=== PATIENT | male | born 1940 | race Caucasian/White ===

== ENCOUNTER → 2019-02-26 | Outpatient (CLI) | payer MEDICARE, OTHER ==
[~2019-02-26] MED LIST: AMLO10 PO; ASPI325EC; ATEN100; ATEN100 PO; CLOP75; GEMF600; GLIP10ER; HYDCHL25 PO; IBUP800; METF500 PO; METO100ER PO; NITR.4SL SL; QUIN5; ROSU10TA; RXOXYACE PO; TAMS.4ER; TRAM50
== END | disposition home or self-care (01) ==
LOC: LAB 19:28 → LAB SHORT 19:28
DX: R32 Unspecified urinary incontinence (principal)
CPT/HCPCS: 87086

== ENCOUNTER 2020-05-13 21:46 | Inpatient (IN) | payer MEDICARE, OTHER ==
[~2020-05-13] VITALS: Ht 162.6 cm; Wt 70.4 kg
[~2020-05-13 21:46] MED LIST changes: -TAMS.4ER; +TAMS.4ER PO
[2020-05-13] MEDS ORDERED: ASPI81CH PO (22:11)
[2020-05-13 22:14] LABS: Source, Urine Catheter
[2020-05-13 22:18] LABS: BASOPHILS ABSOLUTE AUTO 0.03 K/mm3 (0.00-0.23); BASOPHILS PERCENT AUTO 0 % (0-2); EOSINOPHILS ABSOLUTE AUTO 0.01 K/mm3 (0.00-0.68); EOSINOPHILS PERCENT AUTO 0 % (0-6); Hematocrit 47.2 % (37.0-53.0); Hemoglobin 15.7 g/dL (13.5-17.5); IMMATURE GRAN PERCENT AUTO 1 % (0-1); LYMPHOCYTES PERCENT AUTO 3 % (21-46); MONOCYTES ABSOLUTE AUTO 0.67 K/mm3 (0.16-1.47); MONOCYTES PERCENT AUTO 4 % (4-13); Mean Corpuscular HGB 30.3 pg (26.0-34.0); Mean Corpuscular HGB Conc 33.3 g/dL (31.5-36.5); Mean Corpuscular Volume 91 fL (80-100); Mean Platelet Volume 11.9 fL (9.1-12.4); NEUTROPHILS ABSOLUTE AUTO 14.16 K/mm3 (1.96-9.15); NEUTROPHILS PERCENT AUTO 92 % (41-73); Platelet Count 119 K/mm3 (150-400); RDW Coefficient Variation 12.6 % (11.7-14.2); RDW Standard Deviation 42.3 fL (35.1-46.3); Red Blood Cell Count 5.19 M/mm3 (4.30-5.90); White Blood Cell Count 15.37 K/mm3 (4.00-11.30)
[2020-05-13 22:19] LABS: Appearance, Urine Hazy (Clear); Bilirubin, Urine Neg (Neg); Blood, Urine 5+ (Neg); Color, Urine Amber (P-Yellow); Glucose Qualitative, Urine 2+ (Neg); Ketones, Urine 3+ (Neg); Leukocyte Esterase, Urine 2+ (Neg); Nitrite, Urine Neg (Neg); Protein, Urine 4+ (Neg); Specific Gravity, Urine 1.015 (1.003-1.022); Urobilinogen, Urine NORM (Normal)
[2020-05-13 22:27] LABS: Bacteria Few /hpf; Red Blood Cells, Urine 50-100 /hpf (0-2); Squamous Epithelial Cells Rare /hpf (Few); White Blood Cells, Urine 25-50 /hpf (0-5)
[2020-05-13 23:38] LABS: Alanine Aminotransfer (ALT/SGP 67 U/L (12-78); Albumin, Blood 2.8 g/dL (3.4-5.0); Albumin/Globulin Ratio 0.6 (0.8-1.8); Alk Phos 84 U/L (50-136); Anion Gap 10 mmol/L (6-16); Aspartate Aminotrans (AST/SGOT 94 U/L (12-37); Bilirubin, Total 1.3 mg/dL (0.1-1.0); Blood Urea Nitrogen 17 mg/dL (8-24); Bun/Creatinine Ratio 15.2 (12.0-20.0); CO2, Blood 25 mmol/L (21-32); Calcium, Blood 9.2 mg/dL (8.5-10.1); Chloride, Blood 103 mmol/L (98-108); Creatinine, Blood 1.12 mg/dL (0.60-1.20); Globulin, Blood 4.5 g/dL (2.2-4.0); Glomerular Filtration Rate >60 (60-); Glucose, Blood 215 mg/dL (70-99); Potassium, Blood 3.1 mmol/L (3.5-5.5); Sodium, Blood 138 mmol/L (136-145); Total Protein, Blood 7.3 g/dL (6.4-8.2)
[2020-05-14 01:30] LABS: Influenza A, PCR Negative (NEGATIVE); Influenza B, PCR Negative (NEGATIVE); Resp Syncytial Virus, PCR Negative (NEGATIVE); SARS-Cov-2 (COVID-19) PCR, MMC Negative (NEGATIVE)
[2020-05-14] MEDS ORDERED: Prinivil10 MG (01:40)
[2020-05-14] MEDS ORDERED: FINA5 PO (01:41)
[2020-05-14] MEDS ORDERED: VITAMIN D5000 UNIT PO (01:42)
[2020-05-14] MEDS ORDERED: BASAGLAR K100 UNIT/1 (01:44)
[2020-05-14 03:47] LABS: Hematocrit 45.9 % (37.0-53.0); Hemoglobin 14.9 g/dL (13.5-17.5); Mean Corpuscular HGB 30.3 pg (26.0-34.0); Mean Corpuscular HGB Conc 32.5 g/dL (31.5-36.5); Mean Corpuscular Volume 93 fL (80-100); Mean Platelet Volume 11.6 fL (9.1-12.4); Platelet Count 116 K/mm3 (150-400); RDW Coefficient Variation 12.8 % (11.7-14.2); RDW Standard Deviation 44.2 fL (35.1-46.3); Red Blood Cell Count 4.92 M/mm3 (4.30-5.90)
[2020-05-14 04:01] LABS: Anion Gap 9 mmol/L (6-16); Blood Urea Nitrogen 19 mg/dL (8-24); Bun/Creatinine Ratio 16.7 (12.0-20.0); CO2, Blood 24 mmol/L (21-32); Calcium, Blood 9.5 mg/dL (8.5-10.1); Chloride, Blood 106 mmol/L (98-108); Creatinine, Blood 1.14 mg/dL (0.60-1.20); Glomerular Filtration Rate >60 (60-); Glucose, Blood 183 mg/dL (70-99); Potassium, Blood 3.4 mmol/L (3.5-5.5); Sodium, Blood 139 mmol/L (136-145)
--- NOTE | 2020-05-14 05:45 | NUR ---
R FOREARM IV INSERTED PRIOR TO ARRIVAL TO UNIT. NO DOCUMENTATION.
--- NOTE | 2020-05-14 05:55 | NUR ---
SHIFT SUMMARY PT ARRIVED DURING SHIFT FROM ED. PT ALERT AND ORIENTED, SLOW TO RESPOND. HR TACHYCARDIC AT TIMES. BP HYPERTENSIVE, STABLE. OXYGEN SATURATION MAINTAINED ABOVE 92% ON RA. PT ABLE TO ASSIST IN Q 2 TURNS NEEDED. HEPARIN GTT RUNNING, VERIFIED WITH JESSICA INIGUEZ RN. PT REPORTS NO CP OR PRESSURE. PHYSICIAN NOTIFIED OF TRENDING UP TROPONIN LEVELS. WILL CONTINUE TO MONITOR UNTIL REPORT GIVEN TO DAYSHIFT RN.
--- NOTE | 2020-05-14 17:35 | NUR ---
SUMMARY NO ACUTE CHANGES T/O SHIFT. PT INCONTINENT AT TIMES. VOIDING SMALL AMOUNTS URINE, COMPRESSOR MECHANIC BUS THIS EVENING THAN THIS AM. TROPININ IMPROVING, DOWN TO 1.6. POWER GLIDE PLACED TO RUE. SPOUSE AT BEDSIDE AT THIS TIME. PT EATING DINNER. TURNED T/O SHIFT. CALL LIGHT IN REACH.
--- NOTE | 2020-05-14 19:00 | NUR ---
echocardiogram complete
[2020-05-15 04:51] LABS: BASOPHILS ABSOLUTE AUTO 0.02 K/mm3 (0.00-0.23); BASOPHILS PERCENT AUTO 0 % (0-2); EOSINOPHILS ABSOLUTE AUTO 0.08 K/mm3 (0.00-0.68); EOSINOPHILS PERCENT AUTO 1 % (0-6); IMMATURE GRAN ABSOLUTE AUTO 0.02 K/mm3 (0.00-0.10); IMMATURE GRAN PERCENT AUTO 0 % (0-1); LYMPHOCYTES ABSOLUTE AUTO 0.91 K/mm3 (0.84-5.20); LYMPHOCYTES PERCENT AUTO 16 % (21-46); MONOCYTES ABSOLUTE AUTO 0.32 K/mm3 (0.16-1.47); MONOCYTES PERCENT AUTO 6 % (4-13); Mean Corpuscular HGB 30.6 pg (26.0-34.0); Mean Corpuscular HGB Conc 32.4 g/dL (31.5-36.5); Mean Corpuscular Volume 94 fL (80-100); Mean Platelet Volume 11.6 fL (9.1-12.4); NEUTROPHILS ABSOLUTE AUTO 4.28 K/mm3 (1.96-9.15); NEUTROPHILS PERCENT AUTO 76 % (41-73); Platelet Count 100 K/mm3 (150-400); RDW Coefficient Variation 12.8 % (11.7-14.2); RDW Standard Deviation 44.5 fL (35.1-46.3); White Blood Cell Count 5.63 K/mm3 (4.00-11.30)
--- NOTE | 2020-05-15 05:30 | NUR ---
SHIFT SUMMARY PT SLEPT T/O SHIFT. PT ALERT AND ORIENTED X 4. CONFUSED AT TIMES. HR STABLE. BP HYPERTENSIVE. MEDICATIONS GIVEN PER EMAR. PT REPORTS NO CP OR PRESSURE. HEPARIN GTT RUNNING AT 13 U/KG/HR. NO CHANGES MADE DURING SHIFT. PT INCONTINENT OF URINE AT TIMES. DEPENDS IN PLACE. PT ABLE TO TURN SELF IN BED. MEPLEX ON COCCYX. OXYGEN SATURATION MAINTAINED ABOVE 92% ON RA. WILL CONTINUE TO MONITOR UNTIL REPORT GIVEN TO DAYSSAHIL ALAS.
--- NOTE | 2020-05-15 18:39 | NUR ---
SHIFT SUMMARY PT RESTING IN BED NO ACUTE CHANGES IN STATUS T/O SHIFT. DENIED ANY SOB AND CP T/O SHIFT. TROP TRENDING DOWNWARD. HEPARIN GTT DC'D AND SC LOVENOX STARTED. PT TO START WORKING WITH PT/OT TOMORROW. SATS >92^ ON RA. BP STABLE. PT ID HAVE LARGE BM DURING SHIFT. INCONTINENT OF URINE. CALL LGHT IN REACH.
[2020-05-16 01:47] LABS: BASOPHILS ABSOLUTE AUTO 0.02 K/mm3 (0.00-0.23); BASOPHILS PERCENT AUTO 1 % (0-2); EOSINOPHILS PERCENT AUTO 3 % (0-6); Hematocrit 33.1 % (37.0-53.0); Hemoglobin 10.5 g/dL (13.5-17.5); IMMATURE GRAN ABSOLUTE AUTO 0.02 K/mm3 (0.00-0.10); IMMATURE GRAN PERCENT AUTO 1 % (0-1); LYMPHOCYTES ABSOLUTE AUTO 0.99 K/mm3 (0.84-5.20); LYMPHOCYTES PERCENT AUTO 26 % (21-46); MONOCYTES ABSOLUTE AUTO 0.35 K/mm3 (0.16-1.47); MONOCYTES PERCENT AUTO 9 % (4-13); Mean Corpuscular HGB 30.3 pg (26.0-34.0); Mean Corpuscular HGB Conc 31.7 g/dL (31.5-36.5); Mean Corpuscular Volume 95 fL (80-100); Mean Platelet Volume 11.5 fL (9.1-12.4); NEUTROPHILS ABSOLUTE AUTO 2.38 K/mm3 (1.96-9.15); NEUTROPHILS PERCENT AUTO 62 % (41-73); Platelet Count 113 K/mm3 (150-400); RDW Coefficient Variation 12.9 % (11.7-14.2); RDW Standard Deviation 45.1 fL (35.1-46.3); Red Blood Cell Count 3.47 M/mm3 (4.30-5.90); White Blood Cell Count 3.86 K/mm3 (4.00-11.30)
[2020-05-16 02:01] LABS: Albumin/Globulin Ratio 0.6 (0.8-1.8); Bilirubin, Total 0.3 mg/dL (0.1-1.0); Bun/Creatinine Ratio 27.1 (12.0-20.0); Calcium, Blood 8.6 mg/dL (8.5-10.1); Creatinine, Blood 1.29 mg/dL (0.60-1.20); Globulin, Blood 3.2 g/dL (2.2-4.0); Potassium, Blood 3.9 mmol/L (3.5-5.5); Total Protein, Blood 5.2 g/dL (6.4-8.2)
--- NOTE | 2020-05-16 06:18 | NUR ---
SHIFT SUMMARY PT SLEPT T/O SHIFT. PT HYPERTENSIVE, PRN PRESCRIBED MEDICATIONS GIVEN. D/T CONTINUING HTN, PHYSICIAN NOTIFIED. MEDICATIONS PRESCRIBED PER EMAR AND GIVEN PRESCRIBED. PT REPORTS NO CP OR PRESSURE. HR BRADYCARDIC AT TIMES. OXYGEN SATURATION MAINTAINED ABOVE 92% ON RA. PT ABLE TO TURN SELF IN BED NEEDED. PT ALERT AND ORIENTED X 4. MEPLEX ON COCCYX D/T REDNESS. PT INCONTINENT AT TIMES BUT ABLE TO USE URINAL. WILL CONTINUE TO MONITOR UNTIL REPORT GIVEN TO DAYSHIFT RN.
--- NOTE | 2020-05-16 10:55 | NUR ---
PT AWAKE AND ALERT AND PLEASANT. MILD FORGETFULNESS NOTED. PT DENIES AM PAIN OR DISTRESS AND CLAIMS TO BE WALKING AROUND AT HOME WITH WALKER MOST OF THE TIME. PT TAKING PO WELL AND FEEDING SELF. DENIES NEED TO VOID AT THIS TIME WITH ATTENDS IN PLACE FOR POTENTIAL INCONTANCE.
[2020-05-16] MEDS ORDERED: AMLO10 PO (13:17)
[2020-05-16] MEDS ORDERED: CEFU500T30 PO (13:18)
[2020-05-16] MEDS ORDERED: HUMALOG100 UNIT/1 SC (13:19)
[2020-05-16] MEDS ORDERED: PROBIOTIC PO (13:21)
--- NOTE | 2020-05-16 17:39 | NUR ---
DISCHARGE NOTE. PT INSRUCTIONS GIVEN TO PT AND . IV SITES REMOVED INTACT. W/C PT TO [facility].
== END 2020-05-16 15:56 | disposition home health service (06) | DRG 871 ==
LOC: ER 21:46 → PCU 05-14 01:16
PROVIDERS: Family Medicine; Student in an Organized Health Care Education/Training Program; ADMIT Internal Medicine
DX: A40.1 Sepsis due to streptococcus, group B (principal); G92 Toxic encephalopathy; N12 Tubulo-interstitial nephritis, not specified as acute or chronic; Z79.84 Long term (current) use of oral hypoglycemic drugs; Z79.82 Long term (current) use of aspirin; I25.10 Atherosclerotic heart disease of native coronary artery without angina pectoris; E11.9 Type 2 diabetes mellitus without complications; I10 Essential (primary) hypertension; Z95.5 Presence of coronary angioplasty implant and graft; Z95.2 Presence of prosthetic heart valve; E87.6 Hypokalemia; Z20.828 Contact with and (suspected) exposure to other viral communicable diseases; R32 Unspecified urinary incontinence
CPT/HCPCS: 0241U; 36415; 51701; 71045; 76770; 80048; 80053; 81001; 82947; 83605; 84484; 85025; 85027; 85049; 85730; 87086; 87147; 93005; 93010; 93306; 96361; 96365; 96372-59; 97110; 97116; 97162; 99285-25; A9270; A9270-GY; J0696; J1644; J1650; J3480; J7030; J7050; J7120

== ENCOUNTER 2020-09-09 10:53 | Emergency (ER) | payer MEDICARE, OTHER ==
[~2020-09-09] VITALS: Ht 165.1 cm; Wt 74.8 kg
[~2020-09-09 10:53] MED LIST changes: +ASPI81CH PO; +BASAGLAR K100 UNIT/1; +CEFU500T30 PO; +FINA5 PO; +HUMALOG100 UNIT/1 SC; +PROBIOTIC PO; +Prinivil10 MG; +VITAMIN D5000 UNIT PO
[2020-09-09 11:52] LABS: BASOPHILS ABSOLUTE AUTO 0.03 K/mm3 (0.00-0.23); BASOPHILS PERCENT AUTO 0 % (0-2); EOSINOPHILS ABSOLUTE AUTO 0.19 K/mm3 (0.00-0.68); EOSINOPHILS PERCENT AUTO 3 % (0-6); Hematocrit 37.7 % (37.0-53.0); Hemoglobin 12.1 g/dL (13.5-17.5); IMMATURE GRAN ABSOLUTE AUTO 0.03 K/mm3 (0.00-0.10); IMMATURE GRAN PERCENT AUTO 0 % (0-1); LYMPHOCYTES ABSOLUTE AUTO 1.47 K/mm3 (0.84-5.20); LYMPHOCYTES PERCENT AUTO 21 % (21-46); MONOCYTES ABSOLUTE AUTO 0.28 K/mm3 (0.16-1.47); MONOCYTES PERCENT AUTO 4 % (4-13); Mean Corpuscular HGB Conc 32.1 g/dL (31.5-36.5); Mean Corpuscular Volume 93 fL (80-100); Mean Platelet Volume 11.7 fL (9.1-12.4); NEUTROPHILS ABSOLUTE AUTO 5.11 K/mm3 (1.96-9.15); NEUTROPHILS PERCENT AUTO 72 % (41-73); Platelet Count 133 K/mm3 (150-400); RDW Coefficient Variation 13.4 % (11.7-14.2); RDW Standard Deviation 45.8 fL (35.1-46.3); Red Blood Cell Count 4.04 M/mm3 (4.30-5.90); White Blood Cell Count 7.11 K/mm3 (4.00-11.30)
[2020-09-09 12:13] LABS: Albumin, Blood 3.3 g/dL (3.4-5.0); Albumin/Globulin Ratio 0.9 (0.8-1.8); Bun/Creatinine Ratio 22.2 (12.0-20.0); Creatinine, Blood 1.35 mg/dL (0.60-1.20); Globulin, Blood 3.7 g/dL (2.2-4.0); Potassium, Blood 5.3 mmol/L (3.5-5.5)
[2020-09-09 12:53] LABS: Source, Urine Clean Catch
[2020-09-09 13:00] LABS: Appearance, Urine Clear (Clear); Bilirubin, Urine Neg (Neg); Blood, Urine 4+ (Neg); Color, Urine Yellow (P-Yellow); Glucose Qualitative, Urine Neg (Neg); Ketones, Urine Neg (Neg); Leukocyte Esterase, Urine 1+ (Neg); Nitrite, Urine Neg (Neg); Protein, Urine 3+ (Neg); Specific Gravity, Urine 1.015 (1.003-1.022); Urobilinogen, Urine NORM (Normal)
[2020-09-09 13:28] LABS: Red Blood Cells, Urine 25-50 /hpf (0-2); Squamous Epithelial Cells Rare /hpf (Few)
[2020-09-09 13:29] LABS: Bacteria Few /hpf; Hyaline Casts 0-2 /lpf (0-2)
[2020-09-09] MEDS ORDERED: OXYC5 PO (14:09)
== END 2020-09-09 14:20 | disposition home or self-care (01) ==
LOC: ER 10:53
PROVIDERS: Emergency Medicine
DX: N13.2 Hydronephrosis with renal and ureteral calculous obstruction (principal); E11.9 Type 2 diabetes mellitus without complications; I10 Essential (primary) hypertension; Z88.8 Allergy status to other drugs, medicaments and biological substances; Z79.899 Other long term (current) drug therapy; Z79.82 Long term (current) use of aspirin; Z79.4 Long term (current) use of insulin
CPT/HCPCS: 36415; 74176; 80053; 81001; 85025; 87086; 99284-25

== ENCOUNTER → 2020-11-04 | Outpatient (CLI) | payer MEDICARE, OTHER ==
[~2020-11-04] MED LIST changes: +OXYC5 PO
[2020-11-04 19:05] LABS: Appearance, Urine Clear (Clear); Bilirubin, Urine Neg (Neg); Blood, Urine 5+ (Neg); Color, Urine Yellow (P-Yellow); Glucose Qualitative, Urine Neg (Neg); Ketones, Urine Neg (Neg); Leukocyte Esterase, Urine Neg (Neg); Nitrite, Urine Neg (Neg); Protein, Urine 3+ (Neg); Specific Gravity, Urine 1.015 (1.003-1.022); Urobilinogen, Urine NORM (Normal)
[2020-11-04 19:16] LABS: Bacteria Mod /hpf; Red Blood Cells, Urine TNTC /hpf (0-2); Squamous Epithelial Cells Few /hpf (Few); White Blood Cells, Urine 0-2 /hpf (0-5)
== END | disposition home or self-care (01) ==
LOC: LAB 17:00 → LAB SHORT 17:00
PROVIDERS: Family Medicine
DX: R31.9 Hematuria, unspecified (principal)
CPT/HCPCS: 81001; 87086

== ENCOUNTER → 2021-02-22 | Outpatient (CLI) | payer MEDICARE, OTHER ==
[2021-02-22 15:00] LABS: Appearance, Urine Hazy (Clear); Bilirubin, Urine Neg (Neg); Blood, Urine 5+ (Neg); Color, Urine Amber (P-Yellow); Glucose Qualitative, Urine 1+ (Neg); Ketones, Urine 1+ (Neg); Leukocyte Esterase, Urine 1+ (Neg); Nitrite, Urine Pos (Neg); Protein, Urine 4+ (Neg); Urobilinogen, Urine NORM (Normal)
[2021-02-22 15:14] LABS: Bacteria Few /hpf; Red Blood Cells, Urine 50-100 /hpf (0-2); Squamous Epithelial Cells Rare /hpf (Few)
== END | disposition home or self-care (01) ==
LOC: LAB SHORT 12:00
PROVIDERS: Family Medicine
DX: R31.9 Hematuria, unspecified (principal)
CPT/HCPCS: 81001; 87086

== ENCOUNTER 2021-05-23 23:02 | Inpatient (IN) | payer MEDICARE, OTHER ==
[~2021-05-23] VITALS: Ht 165.1 cm; Wt 66.5 kg
[~2021-05-23 23:02] MED LIST changes: -ROSU10TA; +ROSU10TA PO
[2021-05-23] MEDS ORDERED: IRBE75 (23:27)
[2021-05-23] MEDS ORDERED: Amlodipine Bes2.5 MG (23:27)
[2021-05-23] MEDS ORDERED: FINA5 PO (23:28)
[2021-05-23] MEDS ORDERED: TRAM50 (23:28)
[2021-05-23] MEDS ORDERED: CELE100 PO (23:28)
[2021-05-23 23:52] LABS: Hemoglobin 11.7 g/dL (13.5-17.5); Mean Corpuscular HGB 31.3 pg (26.0-34.0); Mean Corpuscular HGB Conc 32.5 g/dL (31.5-36.5); Mean Corpuscular Volume 96 fL (80-100); Mean Platelet Volume 12.6 fL (9.1-12.4); Platelet Count 138 K/mm3 (150-400); RDW Coefficient Variation 13.9 % (11.7-14.2); RDW Standard Deviation 49.2 fL (35.1-46.3); Red Blood Cell Count 3.74 M/mm3 (4.30-5.90); White Blood Cell Count 5.08 K/mm3 (4.00-11.30)
[2021-05-24 00:10] LABS: Albumin, Blood 2.8 g/dL (3.4-5.0); Albumin/Globulin Ratio 0.8 (0.8-1.8); Bun/Creatinine Ratio 13.7 (12.0-20.0); Calcium, Blood 8.6 mg/dL (8.5-10.1); Creatinine, Blood 3.65 mg/dL (0.60-1.20); Globulin, Blood 3.3 g/dL (2.2-4.0); Potassium, Blood 4.2 mmol/L (3.5-5.5); Total Protein, Blood 6.1 g/dL (6.4-8.2)
[2021-05-24 00:22] LABS: BAND PERCENT MAN 9 % (0-8); BASOPHILS PERCENT MAN 0 % (0-2); EOSINOPHILS PERCENT MAN 4 % (0-6); LYMPHOCYTES ABSOLUTE MAN 0.81 K/mm3 (0.84-5.20); LYMPHOCYTES PERCENT MAN 16 % (21-46); MONOCYTES ABSOLUTE MAN 0.45 K/mm3 (0.16-1.47); MONOCYTES PERCENT MAN 9 % (4-13); SEG NEUTROPHILS PERCENT MAN 62 % (41-73); TOTAL CELLS COUNTED 100
[2021-05-24 05:56] LABS: Hematocrit 33.8 % (37.0-53.0); Hemoglobin 11.4 g/dL (13.5-17.5); Mean Corpuscular HGB 31.6 pg (26.0-34.0); Mean Corpuscular HGB Conc 33.7 g/dL (31.5-36.5); Mean Corpuscular Volume 94 fL (80-100); Mean Platelet Volume 12.4 fL (9.1-12.4); Platelet Count 119 K/mm3 (150-400); RDW Coefficient Variation 13.7 % (11.7-14.2); RDW Standard Deviation 46.5 fL (35.1-46.3); Red Blood Cell Count 3.61 M/mm3 (4.30-5.90); White Blood Cell Count 4.85 K/mm3 (4.00-11.30)
[2021-05-24 06:15] LABS: Albumin, Blood 2.6 g/dL (3.4-5.0); Albumin/Globulin Ratio 0.8 (0.8-1.8); Bilirubin, Total 0.9 mg/dL (0.1-1.0); Bun/Creatinine Ratio 14.6 (12.0-20.0); Calcium, Blood 8.2 mg/dL (8.5-10.1); Creatinine, Blood 3.55 mg/dL (0.60-1.20); Globulin, Blood 3.2 g/dL (2.2-4.0); Potassium, Blood 4.4 mmol/L (3.5-5.5); Total Protein, Blood 5.8 g/dL (6.4-8.2)
[2021-05-24 06:20] LABS: Influenza A, PCR NEGATIVE (NEGATIVE); Influenza B, PCR NEGATIVE (NEGATIVE); Resp Syncytial Virus, PCR NEGATIVE (NEGATIVE); SARS-Cov-2 (COVID-19) PCR, MMC NEGATIVE (NEGATIVE)
--- NOTE | 2021-05-24 06:33 | NUR ---
ALERT AND ORIENTED X4, PAIN IMPROED FROM ARRIVAL TO ER, NOT VOMITED, ABD FEELS MORE COMFORTABLE, LUNGS DIMISHED, ABD SOUND HYPO, SKIN INTACT. STATES TO USE A WALKER TO AMBULATE (WALKER IN ROOM). WILL COME TO VERIFY MEDS.
[2021-05-24 06:43] LABS: BAND PERCENT MAN 34 % (0-8); BASOPHILS PERCENT MAN 0 % (0-2); EOSINOPHILS ABSOLUTE MAN 0.09 K/mm3 (0.00-0.68); EOSINOPHILS PERCENT MAN 2 % (0-6); LYMPHOCYTES ABSOLUTE MAN 0.38 K/mm3 (0.84-5.20); LYMPHOCYTES PERCENT MAN 8 % (21-46); MONOCYTES ABSOLUTE MAN 0.19 K/mm3 (0.16-1.47); MONOCYTES PERCENT MAN 4 % (4-13); NEUTROPHILS ABSOLUTE MAN 4.17 K/mm3 (1.96-9.15); SEG NEUTROPHILS PERCENT MAN 52 % (41-73); TOTAL CELLS COUNTED 100
--- NOTE | 2021-05-24 08:32 | NUR ---
INTO SDS ADMISSION TO UNIT STARTED
--- NOTE | 2021-05-24 11:04 | NUR ---
Pt was alert and oriented x3, disoriented to time prior to surgery. Pt left for surgery close to 0800 and will transfer to PCU after surgery. Pt reported abdominal pain this AM with distention. LR was running at 100ml/hr prior to surgery. Will give report to PCU.
--- NOTE | 2021-05-24 11:23 | NUR ---
Report given to Liz in PCU.
--- NOTE | 2021-05-24 14:51 | NUR ---
PT SUMMARY: PT ARRIVED IN THE UNIT VIA HOSPITAL BED FROM RECOVERY POST COLECTOMY. PT ALERT AND ORIENTED X3 WAS STILL A LITTLE DROWSY FROM PROCEDURE BUT IS IN A LOT OF PAIN 8-10/10. VITALS HRR SINUS AT 80-90'S, BP SYSTOLIC ELEVATED AT 170-190'S, HYDRALAZINE 10MG IV GIVEN ONCE BP SYSTOLIC SUSTAINED AT 160-170'S, SATS ABOVE 95% ON 1L OF O2, AFEBRILE. HARNESS TIER PUMP ALSO STARTED ALSO GIVEN FENTANYL 25MCG OF BOLUS PAIN WAS DOWN TO 6/10, PT INSTRUCTED ABOUT THE USE OF HARNESS TIER PT AWARE OF 6MINS INTERVAL OF DOSE INFUSION, PT WAS ABLE TO DEMONSTRATE PUSHING THE BUTTON. ABOUT 75MCG ADMINISTERED FROM THE PUMP TOTAL INFUSED AT THIS TIME. SATYA DRESSING PRESENT ON ABDOMEN, DRESSING REMAINED INTACT. NGT TO INTERMITTENT SUCTION DRAINAGE BROWN IN COLOR WITH GASTRIC CONTENTS. NAVARRETE DRAINING VIA GRAVITY. LACTIC ACID WAS CALLED TO THE HOSPITALIST DR SMILEY ORDERED 1L BOLUS OF LR AND TO REPEAT LACTIC ACID AT 1500. BOLUS INFUSED LR NOW RUNNING AT 150MLS/HR. PT WAS REPOSITIONED OFTEN FOR COMFORT, INSTRUCTED TO COUGH AND DEEP BREATHE. DR JOHNSON ALSO STOPPED BY TO SEE PT VERIFIED EKG THAT PT WAS INTO MOBITZ TYPE 1. PT IN BED RESTING WITH CALL LIGHTS AND PAIN BUTTON IN REACH. WILL CONTINUE TO MONITOR
--- NOTE | 2021-05-24 18:39 | NUR ---
PT'S PAIN WELL MANAGED AT THIS TIME VIA WOOD BUFFER PUMP TOTAL OF 132 MCG ADMINISTERED. PT SLEEPING AND RESTING WELL, VITALS NOW STABLE BP SYSTOLIC 150'S, HRR SR 100'S, SATS ABOVE 95% ON 1L OF O2, AFEBRILE. PT ABLE TO TURN AND REPOSITION IN BED. ONYL HAD 120MLS OF URINE OUTPUT DR SMILEY AWARE TO RECHECK RENAL FUNCTION IN AM, 2700MLS IV FLUID INFUSED LAST LACTIC ACID WAS 11.6 LEADITE HEATER WAS CONSULTED TO CONTINUE LR AT 150MLS/HR. ABD DRESSING CDI. WAS AT THE BEDSIDE UNTIL 6PM. NO OTHER ISSUES REPORTED, CALL LIGHTS AND PAIN BUTTON WITHIN REACH, WILL REPORT TO ONCOMING SHIFT
[2021-05-25 03:24] LABS: Hematocrit 37.6 % (37.0-53.0); Hemoglobin 12.2 g/dL (13.5-17.5); Mean Corpuscular HGB 30.8 pg (26.0-34.0); Mean Corpuscular HGB Conc 32.4 g/dL (31.5-36.5); Mean Corpuscular Volume 95 fL (80-100); Mean Platelet Volume 12.2 fL (9.1-12.4); Platelet Count 102 K/mm3 (150-400); RDW Coefficient Variation 13.8 % (11.7-14.2); RDW Standard Deviation 48.3 fL (35.1-46.3); Red Blood Cell Count 3.96 M/mm3 (4.30-5.90)
[2021-05-25 03:48] LABS: BAND PERCENT MAN 60 % (0-8); BASOPHILS PERCENT MAN 0 % (0-2); EOSINOPHILS PERCENT MAN 0 % (0-6); LYMPHOCYTES ABSOLUTE MAN 0.13 K/mm3 (0.84-5.20); LYMPHOCYTES PERCENT MAN 3 % (21-46); METAMYELOCYTE ABSOLUTE MAN 0.13 K/mm3 (0.00-0.00); METAMYELOCYTE PERCENT MAN 3 % (0-0); MONOCYTES ABSOLUTE MAN 0.13 K/mm3 (0.16-1.47); MONOCYTES PERCENT MAN 3 % (4-13); MYELOCYTE ABSOLUTE MAN 0.09 K/mm3 (0.00-0.00); MYELOCYTE PERCENT MAN 2 % (0-0); SEG NEUTROPHILS PERCENT MAN 29 % (41-73); TOTAL CELLS COUNTED 100
[2021-05-25 05:13] LABS: Bun/Creatinine Ratio 16.1 (12.0-20.0); Calcium, Blood 7.2 mg/dL (8.5-10.1); Creatinine, Blood 3.29 mg/dL (0.60-1.20); Potassium, Blood 4.6 mmol/L (3.5-5.5)
--- NOTE | 2021-05-25 06:18 | NUR ---
SHIFT SUMMARY ASSUMED CARE OF PT AT 1900. PT IS A/OX4. HEART SOUNDS REGULAR, TELE SHOWS SINUS TACH W/ BBB. LUNG SOUNDS DIMINISHED, PT REMAINED ON 1L NC T/O THE NIGHT. PT STATED THAT HE FELT BETTER THAN WAS YESTERDAY. PT REMAIND PAINFREE DURING THE NIGHT. 119MCG OF FENTYAL INFUSED. PT HAS A PICA DRESSING ON HIS ABD, SMALL AMOUNT OF RED DRAINAGE, SAME SIZE HAS DURING DAYSHIFT. CALL LIGHT IN REACH, BED IN LOWEST POSITION.
--- NOTE | 2021-05-25 12:03 | NUR ---
TRANSFER UPDATE REPORT TO ALICIA ALAS ON SURGICAL FLOOR AT 1203.
--- NOTE | 2021-05-25 12:23 | NUR ---
TRANSFER UPDATE PT LEFT UNIT AT 1218 VIA HOSPITAL BED AND OCCOMPANIED BY TO WHISTLE PUNK'S. PT BELONGINGS WITH PT. ON RA DURING TRANSFER. INJECTION MOLDING OPERATOR PUMP TRANSFERED WITH PT.
--- NOTE | 2021-05-25 17:06 | NUR ---
PT. TO FLOOR, ROOM 227 AT 1230 TODAY. DENIES NAUSEA OR PAIN, NG CLAMPED. PT. WITH FIRM ABODMEN, BT HEARD. DRSG. ON ABD. INTACT, CLEAN AND DRY WITH OLD SPOT OF DRAINAGE. O2 ON AT 1l PER NC. AT THIS TIME PT. IS HAVING PORTABLE CXRAY DONE. URINE COLLECTED PER ORDER FOR UA. IS HERE TO VISIT. ORAL CARE DONE TODAY (TEETH BRUSHED AND MOUTH CARE), REPOSITIONED WITH PILLOWS.
[2021-05-25 17:29] LABS: Source, Urine Clean Catch
[2021-05-25 17:35] LABS: Bilirubin, Urine Neg (Neg); Blood, Urine 4+ (Neg); Color, Urine Yellow (P-Yellow); Glucose Qualitative, Urine Neg (Neg); Ketones, Urine 1+ (Neg); Leukocyte Esterase, Urine Neg (Neg); Nitrite, Urine Neg (Neg); Protein, Urine 3+ (Neg); Urobilinogen, Urine NORM (Normal)
[2021-05-25 17:48] LABS: Appearance, Urine Clear (Clear)
[2021-05-25 17:49] LABS: Bacteria Mod /hpf; Granular Casts 0-2 /lpf (0); Red Blood Cells, Urine 0-2 /hpf (0-2); Squamous Epithelial Cells Rare /hpf (Few); White Blood Cells, Urine 0-2 /hpf (0-5)
--- NOTE | 2021-05-25 20:50 | NUR ---
PT IN BED AND IS RESTING COMFORTABLY IN STABLE POSITION. AAO, STATED HIS PAIN IS CONTROLLED WITH VEHICLE INSURANCE AGENT DILAUDID. HE ASSISTED WITH CARE AND ADLS, ASSISTED WITH TOILETING AND BATHROOM NEEDS. HIS CALL LIGHT WAS PLACED NEAR HIM AND ENCOURAGED TO CALL FOR HELP WHEN ASSISTANCE IS NEEDED HE IS MONITORED.
[2021-05-26 04:29] LABS: Hematocrit 32.5 % (37.0-53.0); Hemoglobin 10.6 g/dL (13.5-17.5); Mean Corpuscular HGB 31.7 pg (26.0-34.0); Mean Corpuscular HGB Conc 32.6 g/dL (31.5-36.5); Mean Corpuscular Volume 97 fL (80-100); Mean Platelet Volume 12.1 fL (9.1-12.4); Platelet Count 68 K/mm3 (150-400); RDW Coefficient Variation 13.6 % (11.7-14.2); RDW Standard Deviation 49.1 fL (35.1-46.3); Red Blood Cell Count 3.34 M/mm3 (4.30-5.90); White Blood Cell Count 13.33 K/mm3 (4.00-11.30)
[2021-05-26 05:05] LABS: BAND PERCENT MAN 38 % (0-8); BASOPHILS PERCENT MAN 0 % (0-2); EOSINOPHILS PERCENT MAN 0 % (0-6); LYMPHOCYTES ABSOLUTE MAN 0.13 K/mm3 (0.84-5.20); LYMPHOCYTES PERCENT MAN 1 % (21-46); METAMYELOCYTE ABSOLUTE MAN 0.13 K/mm3 (0.00-0.00); METAMYELOCYTE PERCENT MAN 1 % (0-0); MONOCYTES ABSOLUTE MAN 0.13 K/mm3 (0.16-1.47); MONOCYTES PERCENT MAN 1 % (4-13); MYELOCYTE ABSOLUTE MAN 0.13 K/mm3 (0.00-0.00); MYELOCYTE PERCENT MAN 1 % (0-0); NEUTROPHILS ABSOLUTE MAN 12.79 K/mm3 (1.96-9.15); SEG NEUTROPHILS PERCENT MAN 58 % (41-73); TOTAL CELLS COUNTED 100
--- NOTE | 2021-05-26 05:27 | NUR ---
Pt in bed at this time where he remains much of the night and is resting comfortably in stable condition. AAO, denies pain and discomfort. Assisted with care and adls, medicated as ordered. Assisted with toileting and bathroom needs, assistaing with position change in efforts to enhance comfort. His call light was placed near him and was encouraged to call for help when assistance is needed as he is monitored.
--- NOTE | 2021-05-26 05:28 | NUR ---
Pt noted to have his clamped and unused NG tube fall out, he stated it was an accident.
[2021-05-26 05:48] LABS: Calcium, Blood 7.3 mg/dL (8.5-10.1); Creatinine, Blood 3.23 mg/dL (0.60-1.20); Potassium, Blood 4.3 mmol/L (3.5-5.5)
--- NOTE | 2021-05-26 05:58 | NUR ---
MIDLINE DRESSING IS CLEAN DRY AND PATENT. NO DISCOMFORT VOICED BT PT AT THE AFFECTED AREA.
--- NOTE | 2021-05-26 09:59 | NUR ---
OT AND PT ORDERED THIS A.M. AND PT. UP IN CHAIR AT THIS TIME. VERY WEAK, DIFFICULTY STANDING . MAX ASSIST OF 2 WITH WALKER AND GAITBELT. ECHOCARDIOGRAPHY RADIOLOGY TECHNOLOGIST TURNED OFF AT THIS TIME PT. HAS NO C/O PAIN, IS SLEEPY. VSS, SATS IN 80'S ON 2L , UP TO 3L FOR SATS ABOVE 90%. TOLERATING SITTING UP IN CHAIR AT THIS TIME, DOZING. NO S/S OF ANY DISCOMFORT. MLondon. IN TO SEE PT. THIS A.M.
--- NOTE | 2021-05-26 12:12 | NUR ---
DR. CHAMBERS NOTIFIED OF STOPPED BROWNFIELD PROGRAM COORDINATOR EARLIER VIA TEXT. AT THIS TIME BROWNFIELD PROGRAM COORDINATOR IS DC'D. PATIENT REMAINS UP IN CHAIR IN RECLINING POSITION. DOZING, DENIES PAIN. DENIES NAUSEA.
--- NOTE | 2021-05-26 12:22 | NUR ---
DR. CHAMBERS IN AT THIS TIME . TRAVEL RN OR DC'D. IVF CONTINUED. PATIENT CONTINUES TO DENY PAIN AND DENY NAUSEA. REMAINS UP IN CHAIR. O2 ON AT 3L FOR SAT 92%
--- NOTE | 2021-05-26 14:36 | NUR ---
PATIENT SUMMARY: PT. DROWSY TODAY, BECOMING MORE TALKATIVE DAY PROGRESSES. PAPER CAP MACHINE OPERATOR DC'D TODAY, OFF SINCE 0800 THIS A.M. . HAS DENIED PAIN OR NAUSEA. TYLENOL GIVEN RECENTLY FOR PAIN CONTROL, HOWEVER PT. WITHOUT COMPLAINT. SIPS OF WATER GIVEN PT. IS NOW CLEAR LIQUID. SWALLOWS WELL WITHOUT CHOKING, DENIES ABD. DISCOMFORT. CLINIMIX STARTED, UNASYN STARTED, LR DC'D. IN ROOM VISITING AT THIS TIME. ORAL CARE GIVEN EARLIER AND NAVARRETE CARE. DR. CHAMBERS DID SAY NAVARRETE CAN STAY IN FOR NOW. CALL LIGHT IN REACH, ENCOURAGED PT. TO USE FOR ANY CARES, NEEDS, CONCERNS, COMPLAINTS. ENCOURAGED TO DEEP BREATH T.O. SHIFT. PT AND OT IN TODAY AND DID GET PT. UP. MAX ASSIST TO GET BACK IN BED, 2 PERSON, PT. VERY VERY WEAK. GAIT BELT USED. DID TOLERATE CHAIR X 3 HOUR.
--- NOTE | 2021-05-26 15:21 | NUR ---
1435 ASSUMED CARE OF [ATIENT. PT LYING IN BED WITH EYES CLOSED AND CALL LIGHT IN REACH. PTS AT BEDSIDE AND INSTRUCTED IN USE OF CALL LIGHT
--- NOTE | 2021-05-26 18:07 | NUR ---
TPL SIPS OF CLEAR LIQUIDS WITHOUT NAUSEA. ASSISTED WITH DINNER REPORTS PATIENT IS TO WEAK TO HOLD CONTAINERS. PT DENIES PAIN AT THOS TIME STATES JUST A LITTLE SORENESS
--- NOTE | 2021-05-26 23:29 | NUR ---
PT HAD EMESIS WITH SMALL AMNT COFFEE GROUND NOTED.PT STATED EMESIS SUDDEN AND CURRENTLY DENIES NAUSEA.MECHANICAL TECHNICAL SERVICE SPECIALIST NOTIFIED ME OF HEART RATE DIPPING TO 40'S"BRIEFLY"APPEARED POSSIBLY AT TIME OF EMESIS? VAGEL? 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
--- NOTE | 2021-05-27 03:37 | NUR ---
PT WITH REPEAT SUDDEN EMESIS.HOWEVER, THIS EMESIS WITH BILE COLOR AND ABSENCE OF COFFEE GROUND APPEARANCE.MED WITH ZOFRAN.ABD ONLY MODERATELY FIRM MORESO TO L SIDE AND BTS PRESENT.
--- NOTE | 2021-05-27 04:02 | NUR ---
PT REPORTS NAUSEA RESOLVED AFTER ZOFRAN.
[2021-05-27 04:48] LABS: Hematocrit 33.5 % (37.0-53.0); Hemoglobin 10.6 g/dL (13.5-17.5); Mean Corpuscular HGB 30.4 pg (26.0-34.0); Mean Corpuscular HGB Conc 31.6 g/dL (31.5-36.5); Mean Corpuscular Volume 96 fL (80-100); Platelet Count 65 K/mm3 (150-400); RDW Coefficient Variation 13.5 % (11.7-14.2); RDW Standard Deviation 47.8 fL (35.1-46.3); Red Blood Cell Count 3.49 M/mm3 (4.30-5.90); White Blood Cell Count 13.61 K/mm3 (4.00-11.30)
[2021-05-27 05:19] LABS: Albumin, Blood 1.7 g/dL (3.4-5.0); Albumin/Globulin Ratio 0.6 (0.8-1.8); Bilirubin, Total 0.9 mg/dL (0.1-1.0); Bun/Creatinine Ratio 22.8 (12.0-20.0); Calcium, Blood 7.7 mg/dL (8.5-10.1); Creatinine, Blood 2.9 mg/dL (0.60-1.20); Globulin, Blood 2.8 g/dL (2.2-4.0); Potassium, Blood 3.6 mmol/L (3.5-5.5); Total Protein, Blood 4.5 g/dL (6.4-8.2)
[2021-05-27 05:55] LABS: BAND PERCENT MAN 21 % (0-8); BASOPHILS PERCENT MAN 0 % (0-2); EOSINOPHILS PERCENT MAN 0 % (0-6); LYMPHOCYTES ABSOLUTE MAN 0.27 K/mm3 (0.84-5.20); LYMPHOCYTES PERCENT MAN 2 % (21-46); METAMYELOCYTE ABSOLUTE MAN 0.13 K/mm3 (0.00-0.00); METAMYELOCYTE PERCENT MAN 1 % (0-0); MONOCYTES PERCENT MAN 3 % (4-13); NEUTROPHILS ABSOLUTE MAN 12.79 K/mm3 (1.96-9.15); SEG NEUTROPHILS PERCENT MAN 73 % (41-73); TOTAL CELLS COUNTED 100
--- NOTE | 2021-05-27 08:16 | NUR ---
SUMMARY PT SLEEPING ON L SIDE THIS AM.
--- NOTE | 2021-05-27 09:06 | NUR ---
0830 PT. REFUSED TO EAT BREAKFAST.
--- NOTE | 2021-05-27 10:55 | NUR ---
SPONGE BATH DONE, REPOSITIONING Q 2 HOURS THEN PRN.
--- NOTE | 2021-05-27 17:15 | NUR ---
SUMMARY PT WORKED W/THERAPY TODAY BUT WAS UNABLE TO GET TO CHAIR. THERAPY RECOMMENDS LIFT FOR PT TRANSFERS DUE TO WEAKNESS. PT HAS BEEN PAINFUL T/O SHIFT. MEDICATED PER ORDERS FOR PAIN. BT HYPO X4. DENIES PASSING FLATUS. HAS HAD POOR APPETITE T/O DAY. SPOUSE AT BEDSIDE AT THIS TIME. CALL LIGHT IN REACH.
--- NOTE | 2021-05-27 18:49 | NUR ---
PATIENT HAD BEEN REFUSING HIS MEALS SERVED, FOR DINNER SPOUSE WAS HERE, PT. ASLEEP FOR MORE THAN 1 HOUR NOW.
[2021-05-28 05:24] LABS: Hematocrit 29.9 % (37.0-53.0); Hemoglobin 9.9 g/dL (13.5-17.5); Mean Corpuscular HGB 31.1 pg (26.0-34.0); Mean Corpuscular HGB Conc 33.1 g/dL (31.5-36.5); Mean Corpuscular Volume 94 fL (80-100); Mean Platelet Volume 12.3 fL (9.1-12.4); RDW Coefficient Variation 13.2 % (11.7-14.2); RDW Standard Deviation 45.5 fL (35.1-46.3); Red Blood Cell Count 3.18 M/mm3 (4.30-5.90); White Blood Cell Count 12.07 K/mm3 (4.00-11.30)
[2021-05-28 05:36] LABS: Platelet Count 40 K/mm3 (150-400)
[2021-05-28 06:00] LABS: BAND PERCENT MAN 9 % (0-8); BASOPHILS PERCENT MAN 0 % (0-2); EOSINOPHILS ABSOLUTE MAN 0.24 K/mm3 (0.00-0.68); EOSINOPHILS PERCENT MAN 2 % (0-6); LYMPHOCYTES ABSOLUTE MAN 0.48 K/mm3 (0.84-5.20); LYMPHOCYTES PERCENT MAN 4 % (21-46); MONOCYTES ABSOLUTE MAN 0.36 K/mm3 (0.16-1.47); MONOCYTES PERCENT MAN 3 % (4-13); NEUTROPHILS ABSOLUTE MAN 10.98 K/mm3 (1.96-9.15); SEG NEUTROPHILS PERCENT MAN 82 % (41-73); TOTAL CELLS COUNTED 100
[2021-05-28 06:39] LABS: Albumin, Blood 1.5 g/dL (3.4-5.0); Albumin/Globulin Ratio 0.5 (0.8-1.8); Bilirubin, Total 0.6 mg/dL (0.1-1.0); Bun/Creatinine Ratio 27.9 (12.0-20.0); Calcium, Blood 7.3 mg/dL (8.5-10.1); Creatinine, Blood 2.4 mg/dL (0.60-1.20); Globulin, Blood 2.8 g/dL (2.2-4.0); Potassium, Blood 3.6 mmol/L (3.5-5.5); Total Protein, Blood 4.3 g/dL (6.4-8.2)
--- NOTE | 2021-05-28 07:12 | NUR ---
SUMMARY CRITICLA PLATELETS CALLED TO DR NGO THIS AM. ALSO REVIEWED LABS AND ANTIBIOTIC ORDERS.SEE ORDERS.PT LETHARGIC TONIGHT ?IV PAIN MEDS?
--- NOTE | 2021-05-28 10:07 | NUR ---
0800 OFFERED PT. HIS BREAKFAST, PT. REFUSED.
--- NOTE | 2021-05-28 18:00 | NUR ---
SUMMARY NO ACUTE CHANGES T/O SHIFT. PT CONTINUES TO BE VERY WEAK. WORKED WITH THERAPY THIS SHIFT. MEDICATED ONCE DURING SHIFT FOR NAUSEA. PT RESTED OFF AND ON T/O DAY BUT ANSWERED QUESTIONS APPROPRIATELY. CALL LIGHT IN REACH. NAVARRETE CATH DRAINING CLEAR YELLOW URINE.
[2021-05-29 05:11] LABS: BASOPHILS ABSOLUTE AUTO 0.05 K/mm3 (0.00-0.23); BASOPHILS PERCENT AUTO 1 % (0-2); Hematocrit 31.5 % (37.0-53.0); Hemoglobin 10.5 g/dL (13.5-17.5); LYMPHOCYTES ABSOLUTE AUTO 0.32 K/mm3 (0.84-5.20); LYMPHOCYTES PERCENT AUTO 3 % (21-46); MONOCYTES ABSOLUTE AUTO 0.73 K/mm3 (0.16-1.47); MONOCYTES PERCENT AUTO 7 % (4-13); Mean Corpuscular HGB 31.3 pg (26.0-34.0); Mean Corpuscular HGB Conc 33.3 g/dL (31.5-36.5); Mean Corpuscular Volume 94 fL (80-100); RDW Coefficient Variation 13.1 % (11.7-14.2); RDW Standard Deviation 44.7 fL (35.1-46.3); Red Blood Cell Count 3.36 M/mm3 (4.30-5.90); White Blood Cell Count 10.86 K/mm3 (4.00-11.30)
[2021-05-29 05:25] LABS: EOSINOPHILS PERCENT AUTO 2 % (0-6); Mean Platelet Volume 13.6 fL (9.1-12.4); NEUTROPHILS PERCENT AUTO 84 % (41-73); Platelet Count 37 K/mm3 (150-400)
[2021-05-29 05:26] LABS: EOSINOPHILS ABSOLUTE AUTO 0.16 K/mm3 (0.00-0.68); IMMATURE GRAN ABSOLUTE AUTO 0.47 K/mm3 (0.00-0.10); IMMATURE GRAN PERCENT AUTO 4 % (0-1); NEUTROPHILS ABSOLUTE AUTO 9.13 K/mm3 (1.96-9.15)
[2021-05-29 05:39] LABS: Albumin, Blood 1.5 g/dL (3.4-5.0); Albumin/Globulin Ratio 0.5 (0.8-1.8); Bilirubin, Total 0.6 mg/dL (0.1-1.0); Bun/Creatinine Ratio 31.8 (12.0-20.0); Calcium, Blood 7.8 mg/dL (8.5-10.1); Creatinine, Blood 2.17 mg/dL (0.60-1.20); Globulin, Blood 3.2 g/dL (2.2-4.0); Potassium, Blood 3.6 mmol/L (3.5-5.5); Total Protein, Blood 4.7 g/dL (6.4-8.2)
--- NOTE | 2021-05-29 06:56 | NUR ---
SUMMARY PT RESTING IN BED WITH HOB UP, PT CHEWING ICE AND SIPS WITHOUT NAUSEA, MORE TALKATIVE AND STATES FEELING BETTER.
--- NOTE | 2021-05-29 18:02 | NUR ---
SHIFT SUMMARY PT WORKED w/ PT & OT BUT WAS ONLY ABLE TO DANGLE @ BEDSIDE FOR SHORT TIMES w/ MAX ASSIST. TOLERATING SMALL AMOUNTS CLEAR LQ's BUT NOT VERY INTERESTED IN EATING/DRINKING. PASSING SMALL AMOUNTS OF GAS.
[2021-05-30 04:50] LABS: Hematocrit 27.3 % (37.0-53.0); Hemoglobin 9.1 g/dL (13.5-17.5); Mean Corpuscular HGB 31.1 pg (26.0-34.0); Mean Corpuscular HGB Conc 33.3 g/dL (31.5-36.5); Mean Corpuscular Volume 93 fL (80-100); RDW Coefficient Variation 13.2 % (11.7-14.2); RDW Standard Deviation 44.9 fL (35.1-46.3); Red Blood Cell Count 2.93 M/mm3 (4.30-5.90); White Blood Cell Count 10.29 K/mm3 (4.00-11.30)
[2021-05-30 04:53] LABS: Base Excess Venous -0.3 mmol/L; Bicarbonate Venous 24.2 mmol/L (24.0-30.0); PCO2 Venous 38.1 mmHg (38-42); PO2 Venous 75.5 mmHg (38-42); pH Blood Venous 7.41 (7.34-7.37)
[2021-05-30 04:55] LABS: Platelet Count 33 K/mm3 (150-400)
[2021-05-30 05:15] LABS: Albumin, Blood 1.3 g/dL (3.4-5.0); Albumin/Globulin Ratio 0.4 (0.8-1.8); Bilirubin, Total 0.5 mg/dL (0.1-1.0); Bun/Creatinine Ratio 36.3 (12.0-20.0); Calcium, Blood 7.8 mg/dL (8.5-10.1); Creatinine, Blood 2.04 mg/dL (0.60-1.20); Globulin, Blood 3.1 g/dL (2.2-4.0); Potassium, Blood 3.7 mmol/L (3.5-5.5); Total Protein, Blood 4.4 g/dL (6.4-8.2)
--- NOTE | 2021-05-30 05:38 | NUR ---
SHIFT SUMMARY A/OX3. ABDOMINAL MIDLINE SATYA C/D/I, SCANT AMOUNT OF DRIED RED DRAINAGE. ABDOMEN SOFT AND NONTENDER TO PALPATION, NO BOWEL MOVEMENT THIS SHIFT BUT PT IS PASSING FLATUS. HYPERACTIVE BOWEL TONES. NO N/V REPORTED BY PT. CRITICAL PLATELET VALUE OF 33 THIS AM, PROVIDER AWARE. NAVARRETE DRAINING CLEAR YELLOW URINE. MAINTAINING 93% SATURATIONS WITH 3L NC. OVERALL WEAKNESS. WILL REPORT TO ONCOMING RN.
[2021-05-30 05:49] LABS: BAND PERCENT MAN 6 % (0-8); BASOPHILS PERCENT MAN 0 % (0-2); EOSINOPHILS PERCENT MAN 2 % (0-6); LYMPHOCYTES PERCENT MAN 2 % (21-46); METAMYELOCYTE PERCENT MAN 1 % (0-0); MONOCYTES ABSOLUTE MAN 0.61 K/mm3 (0.16-1.47); MONOCYTES PERCENT MAN 6 % (4-13); NEUTROPHILS ABSOLUTE MAN 9.15 K/mm3 (1.96-9.15); SEG NEUTROPHILS PERCENT MAN 83 % (41-73); TOTAL CELLS COUNTED 100
--- NOTE | 2021-05-30 16:33 | NUR ---
SHIFT SUMMARY POD 5 R MATTIE COLECTOMY ALERT AND ORIENTED BUT FORGETFUL AT TIMES. HAS BEEN ALERT THROUGHOUT THE DAY AND ANSWERS QUESTIONS APPROPRIATLY. HE IS HELPING WITH REPOSITIONING AND CARE. UP TO CHAIR FOR BREAKFAST TOLERATED WELL. SOME DIFFICULTY SITTING AT EDGE OF BED AND REQUIRED 2 MAX ASSIST WITH TRANSFER. PT FEEDING SELF TOLERATING PO WELL. NO NAUSEA OR PAIN. CLINIMIX DC'D PER ORDERS. NAVARRETE REMOVED THIS AM, PER SPOUSE PT UNABLE TO TELL WHEN VOIDING, PT INC OF VOID. POST VOID RESIDUAL OF 150. LARGE AMOUNT OF OUTPUT PER ORTHODONTIST VICE PRESIDENT. PLAN TO ENCOURAGE FLUID INTAKE AND OOB FOR RETURN OF STREGNTH. PT AGREEABLE TO PLAN.
--- NOTE | 2021-05-30 18:14 | NUR ---
PT UP TO CHAIR FOR DINNER. ABLE TO FEED SELF. PT STATES" I FEEL STRONGER TODAY". BACK IN BED FLOATED WITH TWO PILLOWS AT THIS TIME.
[2021-05-31 05:02] LABS: BASOPHILS ABSOLUTE AUTO 0.02 K/mm3 (0.00-0.23); BASOPHILS PERCENT AUTO 0 % (0-2); EOSINOPHILS ABSOLUTE AUTO 0.19 K/mm3 (0.00-0.68); EOSINOPHILS PERCENT AUTO 2 % (0-6); Hemoglobin 9.5 g/dL (13.5-17.5); IMMATURE GRAN PERCENT AUTO 4 % (0-1); LYMPHOCYTES ABSOLUTE AUTO 0.65 K/mm3 (0.84-5.20); LYMPHOCYTES PERCENT AUTO 8 % (21-46); MONOCYTES ABSOLUTE AUTO 0.44 K/mm3 (0.16-1.47); MONOCYTES PERCENT AUTO 5 % (4-13); Mean Corpuscular HGB 31.5 pg (26.0-34.0); Mean Corpuscular HGB Conc 33.9 g/dL (31.5-36.5); Mean Corpuscular Volume 93 fL (80-100); Mean Platelet Volume 11.9 fL (9.1-12.4); NEUTROPHILS ABSOLUTE AUTO 6.71 K/mm3 (1.96-9.15); NEUTROPHILS PERCENT AUTO 81 % (41-73); RDW Standard Deviation 44.4 fL (35.1-46.3); Red Blood Cell Count 3.02 M/mm3 (4.30-5.90); White Blood Cell Count 8.31 K/mm3 (4.00-11.30)
[2021-05-31 05:22] LABS: Platelet Count 47 K/mm3 (150-400)
--- NOTE | 2021-05-31 05:31 | NUR ---
ALERT X'S 3, ABLE TO VERBALIZE NEEDS WITHOUT DIFFICULTY. MEDICATED WITH TYLENOL 650MG DUE TO C/O ABD PAIN, EFFECTIVE REIEF. MIDLINE SATYA DRSSING INATACT WITH OLD DRAINAGE NOTED. OTHERWISE PATIENT SLEPT WELL THROUGH NIGHT, TURNED AND REPOSITIONED FOR COMFORT. INCONTINENT OF BOWEL AND BLADDER THROUGH NIGHT, HAD LRG BM. CURRENTLY RESTING PEACEFULLY IN BED, SAFETY MAINTAINED, CALL SAMUEL IN REACH.
[2021-05-31 05:35] LABS: Albumin, Blood 1.4 g/dL (3.4-5.0); Albumin/Globulin Ratio 0.5 (0.8-1.8); Bilirubin, Total 0.6 mg/dL (0.1-1.0); Bun/Creatinine Ratio 35.3 (12.0-20.0); Calcium, Blood 7.8 mg/dL (8.5-10.1); Creatinine, Blood 2.07 mg/dL (0.60-1.20); Globulin, Blood 2.8 g/dL (2.2-4.0); Potassium, Blood 3.8 mmol/L (3.5-5.5); Total Protein, Blood 4.2 g/dL (6.4-8.2)
--- NOTE | 2021-05-31 11:05 | NUR ---
PT. STATING HIS "RECTUM HURTS", "CANT TAKE THIS PAIN", DESCRIBES BURNING. RECTUM AREA CLEAN AND DRY, NO REDNESS, NO HEMMROIDS NOTED. DID CALL MD AND GAVE PT. ONE TIME ORDER FENTANYL. AT THIS TIME NOTED PT. INCONT. OF STOOL, NO URINE NOTED. ABDOMEN DISTENDED AND BLADDER SCAN DONE. BLADDER SCAN RESULT 550ML, STRT. CATH FOR 700ML, CLEAR REBECCA. PATIENT TOLERATE WELL. RESTING AT THIS TIME WITH NO FURTHER COMPLAINT. MEPELEX APPLIED TO SMALL OPEN AREA IN BUTTOCKS CRACK. TO REPORT STRT. CATH AND RESULT TO MD AT THIS TIME.
--- NOTE | 2021-05-31 16:58 | NUR ---
SHIFT SUMMARY: PATIENT C/O "RECTAL PAIN" TODAY. STATES IT IS "DEEP INSIDE", "CABRERA". MD'S AWARE LIDOCAINE GIVEN DURING SHIFT AND PT. STATES IT IS HELPFUL. TYLENOL ALSO GIVEN FOR DISCOMFORT. PATIENT HAS NOT VOID ALL SHIFT. STRT. CATH AT 1100 TODAY FOR 700CC CLEAR URINE. NEW ORDERS TODAY FOR Q 6 HR. BLADDER SCAN AND STRT. CATH FOR SCAN GREATER THAN 250ML. AT THIS TIME (1700) BLADDER SCAN FOR 289 MLS. STRT CATH FOR 450CC CLEAR YELLOW URINE. PATIENT TOLERATE WELL. TURNED TO R SIDE PT. INSISTENT ON BEING ON LEFT SIDE ALL MORNING. REFUSED PT AND OT TODAY. SMALL FORMED STOOL FELT WHEN LIDOCAINE APPLIED TO RECTUM. PT. STATES IT IS PAINFUL. ENCOURAGED TO WORK WITH PT/OT TO SIT UP ON COMMODE. MULTIPLE SOFT STOOLS TODAY. DID EAT BREAKFAST THIS A.M., REFUSED LUNCH. TAKES FLUIDS WHEN OFFERED. INCENTIVE SPIROMETER TEACHING DONE TODAY AND PT. DID PARTICIPATE. UP TO 1500 AND ENCOURAGEMENT GIVEN. IN TO VISIT PT. TODAY AND VERBALIZE THAT SHE WOULD LIKE TO TALK TO MD 06/01/21 REGARDING PT. LABS.
--- NOTE | 2021-05-31 22:40 | NUR ---
COMPLAINING OF ABDOMINAL DISCOMMFORT, BLADDER SCANNED PATIENT, RECEIVED 649ML, RECEIVED ORDER TO INSERT NAVARRETE CATHETER. IMMEDIATELY RECIEVED 650ML, TOLERATED WELL.
[2021-06-01 06:35] LABS: Albumin, Blood 1.5 g/dL (3.4-5.0); Anion Gap 9 mmol/L (6-16); Blood Urea Nitrogen 68 mg/dL (8-24); Bun/Creatinine Ratio 31.1 (12.0-20.0); CO2, Blood 23 mmol/L (21-32); Calcium, Blood 8.1 mg/dL (8.5-10.1); Chloride, Blood 106 mmol/L (98-108); Creatinine, Blood 2.19 mg/dL (0.60-1.20); Glomerular Filtration Rate 29 (60-); Glucose, Blood 174 mg/dL (70-99); Phosphorus, Blood 5.1 mg/dL (2.5-4.9); Potassium, Blood 4.1 mmol/L (3.5-5.5); Sodium, Blood 138 mmol/L (136-145)
--- NOTE | 2021-06-01 07:15 | NUR ---
HAD MULTIPLE LARGE BOWEL MOVEMENTS THROUGH NIGHT, FORMED SOFT AND LOOSE. PATIENT STATED HE FELT MUCH BETTER AFTER RELEASING STOOL, FOLEYCATHETER DRAINING CLEAR YELLOW URINE. PATIENT REQUESTED 2 ENSURES THIS AM, DRANK 100%. MIDLINE SATYA DRESSING INTACT, NO NEW DRAINAGE. RESTING PEACEFULLY IN BED, SAFETY MAINTAINED.
--- NOTE | 2021-06-01 11:33 | NUR ---
PT AND OT WORKED W/PT
--- NOTE | 2021-06-01 15:17 | NUR ---
DR WARD IN TO SEE PT.
--- NOTE | 2021-06-01 18:34 | NUR ---
SUMMARY NO ACUTE CHANGES TO SHIFT. PT CONTINUES TO BE VERY WEAK. WORKED W/PT AND OT THIS SHIFT. TOLERATING SMALL AMOUNTS FULL LIQUIDS. HAD MULTIPLE UNFORMED STOOLS T/O AFTERNOON. C/O BURNING TO RECTUM AFTER BMS. HAS SMALL BREAKDOWN BETWEEN BUTTOCKS. APPLIED PROTECTIVE CREAM AFTER BMS. PT HAS RESTED ON SIDES T/O DAY. CALL OUT FOR ASSISTANCE. SPOUSE IN TO SEE PT THIS AFTERNOON.
[2021-06-02 05:18] LABS: Hematocrit 25.7 % (37.0-53.0); Hemoglobin 8.6 g/dL (13.5-17.5); Mean Corpuscular HGB 31.2 pg (26.0-34.0); Mean Corpuscular HGB Conc 33.5 g/dL (31.5-36.5); Mean Corpuscular Volume 93 fL (80-100); Mean Platelet Volume 12.4 fL (9.1-12.4); Platelet Count 129 K/mm3 (150-400); RDW Coefficient Variation 13.1 % (11.7-14.2); RDW Standard Deviation 44.4 fL (35.1-46.3); Red Blood Cell Count 2.76 M/mm3 (4.30-5.90)
--- NOTE | 2021-06-02 05:53 | NUR ---
SLEPT WELL THROUGH NIGHT. PATIENT HAD ONE SOFT INCONTINENT BOWEL MOVEMENT THROUGH NIGHT. FLUIDS ENCOURAGED AT BEDSIDE, DRANK 500ML. ABLE TO TURN AND REPOSITION SELF. NAVARRETE CATHETER PATENT. DENIES PAIN OR DISCOMFORT. SAFETY MAINTAINED, CALL SAMUEL IN REACH.
[2021-06-02 06:01] LABS: Albumin, Blood 1.5 g/dL (3.4-5.0); Albumin/Globulin Ratio 0.4 (0.8-1.8); Bilirubin, Total 0.4 mg/dL (0.1-1.0); Bun/Creatinine Ratio 27.7 (12.0-20.0); Calcium, Blood 8.2 mg/dL (8.5-10.1); Creatinine, Blood 2.2 mg/dL (0.60-1.20); Globulin, Blood 3.4 g/dL (2.2-4.0); Potassium, Blood 3.4 mmol/L (3.5-5.5); Total Protein, Blood 4.9 g/dL (6.4-8.2)
--- NOTE | 2021-06-02 17:11 | NUR ---
SUMMARY NO ACUTE CHANGES T/O SHIFT. PT CONTINUES TO HAVE INCONTINENT SOFT/UNFORMED BMS. COVERED CBG PER ORDERS. PT WORKED W/THERAPY. CONTINUES TO BE TOO WEAK TO SIT UPRIGHT INDEPENDENTLY. SPOUSE AT BEDSIDE THIS SHIFT WORKED W/THERAPY. CALL LIGHT IN REACH.
--- NOTE | 2021-06-03 05:58 | NUR ---
Medicated with tylenol 650mg and Tramadol 50mg for pain management, some relief. Slept through night. Repositioned for comfort. Foleycatheter patent, no BM. Midline incision to abdomen approximated, karyna intact. MARK Safety maintained, call glynn in reach. Resting peacefully in bed with eyes closed at this time.
--- NOTE | 2021-06-03 18:06 | NUR ---
SHIFT SUMMARY PT A&OX4, VSS/RA/BIOX ON-OXYGEN >94%/TELE NSR @ 83 BPM/CBG ACHS COV PER EMAR. MEDS WITH APPLESAUCE. AARON PO, MEAL ASSIST. NAVARRETE PATENT & DRAINING YELLOW URINE, STAT LOCK ON, OFF FLOOR. PAIN MANAGED WITH TYLENOL AND ULTRAM BID. PHYSICAL THERAPY WORKED WITH PT TODAY AND GOT HIM TO SIT AT SIDE OF BED WITH ASSIST. 2 PP MAX ASSIST TO REPOSITION. POD8 R HEMICOLECTOMY, MIDLINE LOLA INVESTMENT ADVISOR, DRY/INTACT. WILL REPORT TO ONCOMING NOC RN.
--- NOTE | 2021-06-04 05:16 | NUR ---
SLEPT WELL THROUGH NIGHT. CONTINUOUS PULSE OX IN PLACE, SATURATION BTW 91%-94% RA, RESPIRATIONS EVEN AND UNLABORED, NO DISTRESS NOTED. DENIES PAIN, REPOSITIONED THROUGH NIGHT. MIDLINE INCISION WITH LOLA CLEAN DRY AND INTACT, WELL APPROXIMATED,MARK. NAVARRETE CATHETER PATENT. SAFETY MAINTAINED, CALL SAMUEL IN REACH.
[2021-06-04 05:42] LABS: Hematocrit 25.2 % (37.0-53.0); Hemoglobin 8.3 g/dL (13.5-17.5); Mean Corpuscular HGB 31.2 pg (26.0-34.0); Mean Corpuscular HGB Conc 32.9 g/dL (31.5-36.5); Mean Corpuscular Volume 95 fL (80-100); Mean Platelet Volume 11.3 fL (9.1-12.4); Platelet Count 209 K/mm3 (150-400); RDW Coefficient Variation 13.2 % (11.7-14.2); RDW Standard Deviation 45.6 fL (35.1-46.3); Red Blood Cell Count 2.66 M/mm3 (4.30-5.90)
[2021-06-04 06:27] LABS: Albumin, Blood 1.6 g/dL (3.4-5.0); Albumin/Globulin Ratio 0.5 (0.8-1.8); Bilirubin, Total 0.4 mg/dL (0.1-1.0); Bun/Creatinine Ratio 21.7 (12.0-20.0); Calcium, Blood 8.1 mg/dL (8.5-10.1); Creatinine, Blood 1.98 mg/dL (0.60-1.20); Globulin, Blood 3.1 g/dL (2.2-4.0); Potassium, Blood 4.3 mmol/L (3.5-5.5); Total Protein, Blood 4.7 g/dL (6.4-8.2)
--- NOTE | 2021-06-04 14:15 | NUR ---
tuttle removed at 1303. bladder scan at 1415, 82 mls.
--- NOTE | 2021-06-04 16:39 | NUR ---
SHIFT SUMMARY POD9 R HEMICOLECTOMY, MIDLINE LOLA MARK, DRY/INTACT. A&OX4, VSS/RA, TELE NSR @ 83 BPM, CBGS COV PER EMAR, AARON PO/MEAL ASSIST, NAVARRETE REMOVED AT 1300, BLADDER SCAN AT 1415 - 82 MLS. PAIN MANAGED WITH TYLENOL AND ULTRAM. ASSISTED PT TO SIT AT SIDE OF BED, 2 PP MAX/VERY WEAK, NEEDED ASSISTANCE TO SIT UP, PERFORM ROM AND PHYSICAL THERAPY EXERCISES. REPOSITION SIDE/SIDE TO KEEP PT OFF BOTTOM. WILL REPORT TO NEXT RN.
--- NOTE | 2021-06-04 17:40 | NUR ---
BLADDER SCAN 1715, 265 MLS. TELEPHONE CALL WITH HOSPITALIST, ORDER RECEIVED: DO NOT REPLACE NAVARRETE UNLESS > 500 MLS.
--- NOTE | 2021-06-05 04:44 | NUR ---
PT IS ALERT AND ORIETED X4. ULTRAM GIVEN ONCE FOR RECTUM PAIN. BED SORE STAGE II; REPOSITION EVERY TWO HOURS. BOWEL SOUNDS ACTIVE. HAD A LOSE BM WITH BLOOD; LAB CBC AND CMP WERE SENT. BLADER SCANED FOR 130 ML. SCD ON. TAKE PILLS WITH APPLE SAUCE. VSS. SLEP WELL.
[2021-06-05 05:00] LABS: BASOPHILS ABSOLUTE AUTO 0.08 K/mm3 (0.00-0.23); BASOPHILS PERCENT AUTO 1 % (0-2); EOSINOPHILS ABSOLUTE AUTO 0.14 K/mm3 (0.00-0.68); EOSINOPHILS PERCENT AUTO 2 % (0-6); Hematocrit 23.2 % (37.0-53.0); Hemoglobin 7.5 g/dL (13.5-17.5); IMMATURE GRAN ABSOLUTE AUTO 0.13 K/mm3 (0.00-0.10); IMMATURE GRAN PERCENT AUTO 1 % (0-1); LYMPHOCYTES ABSOLUTE AUTO 1.15 K/mm3 (0.84-5.20); LYMPHOCYTES PERCENT AUTO 12 % (21-46); MONOCYTES ABSOLUTE AUTO 0.47 K/mm3 (0.16-1.47); MONOCYTES PERCENT AUTO 5 % (4-13); Mean Corpuscular HGB 30.7 pg (26.0-34.0); Mean Corpuscular HGB Conc 32.3 g/dL (31.5-36.5); Mean Corpuscular Volume 95 fL (80-100); Mean Platelet Volume 11.4 fL (9.1-12.4); NEUTROPHILS ABSOLUTE AUTO 7.55 K/mm3 (1.96-9.15); NEUTROPHILS PERCENT AUTO 79 % (41-73); Platelet Count 238 K/mm3 (150-400); RDW Coefficient Variation 13.2 % (11.7-14.2); RDW Standard Deviation 45.7 fL (35.1-46.3); Red Blood Cell Count 2.44 M/mm3 (4.30-5.90); White Blood Cell Count 9.52 K/mm3 (4.00-11.30)
--- NOTE | 2021-06-05 05:07 | NUR ---
LAB RESULTS: HGB 7.5 HCT 23.2
[2021-06-05 05:29] LABS: Albumin, Blood 1.5 g/dL (3.4-5.0); Albumin/Globulin Ratio 0.4 (0.8-1.8); Bilirubin, Total 0.3 mg/dL (0.1-1.0); Bun/Creatinine Ratio 21.9 (12.0-20.0); Calcium, Blood 7.9 mg/dL (8.5-10.1); Creatinine, Blood 1.92 mg/dL (0.60-1.20); Globulin, Blood 3.5 g/dL (2.2-4.0); Potassium, Blood 4.2 mmol/L (3.5-5.5)
[2021-06-05 09:06] LABS: Hematocrit 24.8 % (37.0-53.0); Hemoglobin 8.2 g/dL (13.5-17.5)
--- NOTE | 2021-06-05 19:14 | NUR ---
SHIFT SUMMARY PT A&OX4, VSS/1LNC, BIOX >92%. POD11 R COLECTOMY, MIDLINE STAPLE SENIOR CASE MANAGER CDI. REPOSITIONING Q2 SIDE/SIDE. AARON PO - INTAKE INCREASED TODAY, PT ATE MOST OF EACH MEAL AND HAD SNACKS. VOIDING/BOWEL INCONTINENT, ATTENDS ON; BLADDER SCAN 235. WILL REPORT TO ONCOMING NOC RN.
--- NOTE | 2021-06-06 03:59 | NUR ---
SHIFT SUMMARY POD12- R COLECTOMY. ABDOMINAL INCISION CLEAN, DRY, AND HOUSE FELLOW. VITAL SIGNS STABLE. VOIDING AND TOLERATING PO INTAKE. BEDREST AT THIS TIME. PLAN TO GO HOME WITH HH TODAY. WILL CONTINUE TO MONITOR, AND REPORT TO ONCOMING RN.
--- NOTE | 2021-06-06 04:50 | NUR ---
VITALS TAKEN, BP 185/71. HYDRALIZINE NOT GIVEN DUE TO HR NOT BEING IN PARAMETERS, STATES HOLD IF HR LESS THAN 70, HR IS 63 AT THIS TIME.
[2021-06-06 05:19] LABS: Hematocrit 26.2 % (37.0-53.0); Hemoglobin 8.3 g/dL (13.5-17.5); Mean Corpuscular HGB 30.6 pg (26.0-34.0); Mean Corpuscular HGB Conc 31.7 g/dL (31.5-36.5); Mean Corpuscular Volume 97 fL (80-100); Mean Platelet Volume 11.3 fL (9.1-12.4); Platelet Count 261 K/mm3 (150-400); RDW Coefficient Variation 13.3 % (11.7-14.2); RDW Standard Deviation 47.3 fL (35.1-46.3); Red Blood Cell Count 2.71 M/mm3 (4.30-5.90); White Blood Cell Count 9.66 K/mm3 (4.00-11.30)
--- NOTE | 2021-06-06 05:27 | NUR ---
PLACED CALL TO DR OCASIO AT APPROX [id number] ABOUT PATIENTS BLOOD PRESSURE 185/71 WITH A PULSE OF 63, UNABLE TO REACH HIM AT THIS TIME. WILL AWAIT A CALL BACK.
--- NOTE | 2021-06-06 05:36 | NUR ---
SPOKE TO DR SIMS ABOUT BLOOD PRESSURE AND PULSE BEING BELOW 70, HE GAVE ORDER TO GIVE THE PRN HYDRALAZINE AT THIS TIME DESPITE THE PULSE BEING BELOW PARAMETERS STATED.
[2021-06-06 06:17] LABS: Bun/Creatinine Ratio 21.9 (12.0-20.0); Creatinine, Blood 1.87 mg/dL (0.60-1.20); Potassium, Blood 4.5 mmol/L (3.5-5.5)
--- NOTE | 2021-06-06 12:00 | NUR ---
Received referral from nurse vp care management (Hanna Winchester) on 06/06/2021. Patient is to discharge 06/06/2021 with orders for home health and elected [facility]. Met with patient and patient's (Joya Weiner) to further discuss the above. Patient and are agreeable to the above. Discussed homebound status definition with patient and . Patient and verbalized understanding. Discussed what home health is vs what it is not (in home caregivers/housekeeping). Patient and verbalized understanding. Discussed the next steps in the process of an initial assessment to determine frequency of visits. Again patient and verbalized understanding. Offered a chance for patient and to ask questions regarding the above of which there were none. Gathered all supporting documentation for referral (face sheet, face to face, med list, H&P, and most recent PT assessment) and sent to [facility] for review. No further interventions required. Ciera Jefferson Referral Liaison
[2021-06-06] MEDS ORDERED: CARV6.25 PO (14:56)
--- NOTE | 2021-06-06 15:38 | NUR ---
DISCHARGE PT AND SPOUSE PROVIDED WITH WRITTEN AND VERBAL DISCHARGE INSTRUCTIONS. VS CHECKED PRIOR TO DISCHARGE AND BP 171/59, DR. DEMPSEY NOTIFIED AND OK TO DISCAHRGE HOME PER DR. DEMPSEY. PT AND SPOUSE INSTRUCTED THAT COREG WAS FAXED TO [facility] AND CONFIRMATION RECEIVED. PT WAS WEANED OFF OF O2 AND INSTRUCTED TO USE HIS INCENTIVE SPIROMETER. HE DEMONSTRATED ABILITY TO USE INCENTIVE SPIROMETER. HE TOLERATED ROOM AIR EVEN WHILE SLEEPING SINCE O2 WAS REMOVED AT 1000. HOME HEALTH ARRANGED PRIOR TO DISCHARGE. PT AND SPOUSE DECLINED NEED FOR HOSPITAL BED AT HOME. PT LEFT WITH [employer] AT 1528.
== END 2021-06-06 15:16 | disposition home or self-care (01) | DRG 329 ==
LOC: ER 23:02 → ERHOLD 05-24 02:55 → PCU 05-24 02:55 → SURS 05-24 02:55 → PCU 05-24 12:33 → SURS 05-25 12:41
PROVIDERS: Emergency Medicine; Family Medicine; Hospitalist; Internal Medicine; Student in an Organized Health Care Education/Training Program; Surgery; ADMIT Internal Medicine
PROC: 0DTF0ZZ Resection of Right Large Intestine, Open Approach (ICD-10-PCS; principal; 2021-05-24 08:45)
DX: K56.2 Volvulus (principal); N17.0 Acute kidney failure with tubular necrosis; A41.9 Sepsis, unspecified organism; J96.00 Acute respiratory failure, unspecified whether with hypoxia or hypercapnia; E87.2 Acidosis; R18.8 Other ascites; N18.30 Chronic kidney disease, stage 3 unspecified; Z20.822 Contact with and (suspected) exposure to COVID-19; I44.1 Atrioventricular block, second degree; I12.9 Hypertensive chronic kidney disease with stage 1 through stage 4 chronic kidney disease, or unspecified chronic kidney disease; E11.22 Type 2 diabetes mellitus with diabetic chronic kidney disease; D69.59 Other secondary thrombocytopenia; R74.01 Elevation of levels of liver transaminase levels; J02.9 Acute pharyngitis, unspecified; E11.65 Type 2 diabetes mellitus with hyperglycemia; N40.0 Benign prostatic hyperplasia without lower urinary tract symptoms; I25.10 Atherosclerotic heart disease of native coronary artery without angina pectoris; Z95.1 Presence of aortocoronary bypass graft; Z95.2 Presence of prosthetic heart valve; Z79.4 Long term (current) use of insulin; Z98.890 Other specified postprocedural states; Z88.5 Allergy status to narcotic agent; Z79.82 Long term (current) use of aspirin; Z79.899 Other long term (current) drug therapy; Z79.1 Long term (current) use of non-steroidal anti-inflammatories (NSAID); I25.2 Old myocardial infarction
CPT/HCPCS: 0241U; 36415; 51702; 71045; 74176; 80048; 80053; 80069; 81001; 82607; 82728; 82746; 82803; 82947; 83540; 83550; 83605; 83690; 84145; 85014; 85018; 85025; 85027; 87040; 87086; 88307; 93005; 93010; 94760; 94762; 96374; 96375; 97110; 97161; 97166; 97530; 97535; 99285-25; A9270; C1751; C9113; J0295; J0330; J0360; J1100; J1815; J2270; J2370; J2405; J2704; J3010; J7030; J7120

== ENCOUNTER 2021-06-11 09:44 | Inpatient (IN) | payer MEDICARE, OTHER ==
[~2021-06-11] VITALS: Ht 167.6 cm; Wt 86.2 kg
[~2021-06-11 09:44] MED LIST changes: +Amlodipine Bes2.5 MG; +CARV6.25 PO; +CELE200 PO; +Crestor20 MG PO; +IRBE75; -ROSU10TA PO
[2021-06-11 10:32] LABS: BASOPHILS ABSOLUTE AUTO 0.08 K/mm3 (0.00-0.23); BASOPHILS PERCENT AUTO 1 % (0-2); EOSINOPHILS PERCENT AUTO 1 % (0-6); Hematocrit 29.8 % (37.0-53.0); Hemoglobin 9.4 g/dL (13.5-17.5); IMMATURE GRAN ABSOLUTE AUTO 0.05 K/mm3 (0.00-0.10); IMMATURE GRAN PERCENT AUTO 1 % (0-1); LYMPHOCYTES ABSOLUTE AUTO 1.15 K/mm3 (0.84-5.20); LYMPHOCYTES PERCENT AUTO 13 % (21-46); MONOCYTES ABSOLUTE AUTO 0.36 K/mm3 (0.16-1.47); MONOCYTES PERCENT AUTO 4 % (4-13); Mean Corpuscular HGB 30.9 pg (26.0-34.0); Mean Corpuscular HGB Conc 31.5 g/dL (31.5-36.5); Mean Corpuscular Volume 98 fL (80-100); Mean Platelet Volume 10.5 fL (9.1-12.4); NEUTROPHILS ABSOLUTE AUTO 7.14 K/mm3 (1.96-9.15); NEUTROPHILS PERCENT AUTO 80 % (41-73); Platelet Count 260 K/mm3 (150-400); RDW Coefficient Variation 13.4 % (11.7-14.2); RDW Standard Deviation 47.7 fL (35.1-46.3); Red Blood Cell Count 3.04 M/mm3 (4.30-5.90); White Blood Cell Count 8.88 K/mm3 (4.00-11.30)
[2021-06-11 10:53] LABS: Albumin, Blood 2.3 g/dL (3.4-5.0); Albumin/Globulin Ratio 0.6 (0.8-1.8); Bilirubin, Total 0.6 mg/dL (0.1-1.0); Bun/Creatinine Ratio 12.2 (12.0-20.0); Calcium, Blood 8.4 mg/dL (8.5-10.1); Creatinine, Blood 1.81 mg/dL (0.60-1.20); Globulin, Blood 4.1 g/dL (2.2-4.0); Total Protein, Blood 6.4 g/dL (6.4-8.2); Troponin I 0.091 ng/mL (0.000-0.040)
[2021-06-11 11:07] LABS: Influenza A, PCR NEGATIVE (NEGATIVE); Influenza B, PCR NEGATIVE (NEGATIVE); Resp Syncytial Virus, PCR NEGATIVE (NEGATIVE); SARS-Cov-2 (COVID-19) PCR, MMC NEGATIVE (NEGATIVE)
[2021-06-11 18:48] LABS: Source, Urine Clean Catch
[2021-06-11 18:53] LABS: Bilirubin, Urine Neg (Neg); Blood, Urine Neg (Neg); Glucose Qualitative, Urine Neg (Neg); Ketones, Urine Neg (Neg); Leukocyte Esterase, Urine Neg (Neg); Nitrite, Urine Neg (Neg); Protein, Urine 1+ (Neg); Urobilinogen, Urine NORM (Normal); pH, Urine 6.5 (5.0-8.0)
[2021-06-11 19:07] LABS: Color, Urine Pale Yellow (P-Yellow)
[2021-06-11 19:08] LABS: Appearance, Urine Clear (Clear)
[2021-06-12 04:40] LABS: BASOPHILS ABSOLUTE AUTO 0.05 K/mm3 (0.00-0.23); BASOPHILS PERCENT AUTO 1 % (0-2); EOSINOPHILS ABSOLUTE AUTO 0.11 K/mm3 (0.00-0.68); EOSINOPHILS PERCENT AUTO 2 % (0-6); Hematocrit 24.4 % (37.0-53.0); Hemoglobin 7.9 g/dL (13.5-17.5); IMMATURE GRAN ABSOLUTE AUTO 0.03 K/mm3 (0.00-0.10); IMMATURE GRAN PERCENT AUTO 0 % (0-1); LYMPHOCYTES ABSOLUTE AUTO 1.04 K/mm3 (0.84-5.20); LYMPHOCYTES PERCENT AUTO 14 % (21-46); MONOCYTES ABSOLUTE AUTO 0.38 K/mm3 (0.16-1.47); MONOCYTES PERCENT AUTO 5 % (4-13); Mean Corpuscular HGB 31.5 pg (26.0-34.0); Mean Corpuscular HGB Conc 32.4 g/dL (31.5-36.5); Mean Corpuscular Volume 97 fL (80-100); Mean Platelet Volume 10.7 fL (9.1-12.4); NEUTROPHILS ABSOLUTE AUTO 5.73 K/mm3 (1.96-9.15); NEUTROPHILS PERCENT AUTO 78 % (41-73); Platelet Count 203 K/mm3 (150-400); RDW Coefficient Variation 13.2 % (11.7-14.2); RDW Standard Deviation 46.8 fL (35.1-46.3); Red Blood Cell Count 2.51 M/mm3 (4.30-5.90); White Blood Cell Count 7.34 K/mm3 (4.00-11.30)
--- NOTE | 2021-06-12 05:47 | NUR ---
PATIENT HAS HAD AN UNEVENTFUL NIGHT. PATIENT IS WEAK WHEN ATTEMPTING TO HELP TURN HIMSELF. A$O X 3 PERSON, PLACE, SITUATION. PATIENT DOES SEEM TO BE CONFUSED WHEN FOLLOWING SOME COMMANDS. UNABLE TO USE CALL LIGHT. YELLS OUT AT TIMES. COOPERATIVE WITH CARE. VITALS REVIEWED. CALL LIGHT IN REACH.
[2021-06-12 05:54] LABS: Albumin, Blood 1.8 g/dL (3.4-5.0); Albumin/Globulin Ratio 0.5 (0.8-1.8); Bilirubin, Total 0.5 mg/dL (0.1-1.0); Bun/Creatinine Ratio 13.3 (12.0-20.0); Calcium, Blood 7.8 mg/dL (8.5-10.1); Creatinine, Blood 1.81 mg/dL (0.60-1.20); Globulin, Blood 3.3 g/dL (2.2-4.0); Magnesium, Blood 1.8 mg/dL (1.6-2.4); Potassium, Blood 4.3 mmol/L (3.5-5.5); Total Protein, Blood 5.1 g/dL (6.4-8.2)
--- NOTE | 2021-06-13 04:32 | NUR ---
PATIENT HAS ANSWERED QUESTIONS THIS EVENING. DOES NOT USE CALL LIGHT INSTEAD YELLS OUT. TOOK PM MEDIATION AND TOLERATED WELL. Q2 HR TURNS PERFORMED. CALL LIGHT IN REACH AND BED ALARM SET.
[2021-06-13 04:49] LABS: BASOPHILS ABSOLUTE AUTO 0.05 K/mm3 (0.00-0.23); BASOPHILS PERCENT AUTO 1 % (0-2); EOSINOPHILS ABSOLUTE AUTO 0.14 K/mm3 (0.00-0.68); EOSINOPHILS PERCENT AUTO 2 % (0-6); Hematocrit 24.2 % (37.0-53.0); Hemoglobin 7.6 g/dL (13.5-17.5); IMMATURE GRAN ABSOLUTE AUTO 0.03 K/mm3 (0.00-0.10); IMMATURE GRAN PERCENT AUTO 0 % (0-1); LYMPHOCYTES ABSOLUTE AUTO 1.42 K/mm3 (0.84-5.20); LYMPHOCYTES PERCENT AUTO 19 % (21-46); MONOCYTES ABSOLUTE AUTO 0.42 K/mm3 (0.16-1.47); MONOCYTES PERCENT AUTO 6 % (4-13); Mean Corpuscular HGB 30.4 pg (26.0-34.0); Mean Corpuscular HGB Conc 31.4 g/dL (31.5-36.5); Mean Corpuscular Volume 97 fL (80-100); Mean Platelet Volume 11.2 fL (9.1-12.4); NEUTROPHILS PERCENT AUTO 72 % (41-73); Platelet Count 203 K/mm3 (150-400); RDW Coefficient Variation 13.3 % (11.7-14.2); RDW Standard Deviation 46.9 fL (35.1-46.3); White Blood Cell Count 7.36 K/mm3 (4.00-11.30)
[2021-06-13 05:50] LABS: Albumin, Blood 1.9 g/dL (3.4-5.0); Anion Gap 8 mmol/L (6-16); Blood Urea Nitrogen 30 mg/dL (8-24); Bun/Creatinine Ratio 14.2 (12.0-20.0); CO2, Blood 26 mmol/L (21-32); Calcium, Blood 7.8 mg/dL (8.5-10.1); Chloride, Blood 106 mmol/L (98-108); Creatinine, Blood 2.12 mg/dL (0.60-1.20); Glomerular Filtration Rate 30 (60-); Glucose, Blood 135 mg/dL (70-99); Potassium, Blood 3.7 mmol/L (3.5-5.5); Sodium, Blood 140 mmol/L (136-145)
[2021-06-13 10:33] LABS: Hematocrit 24.6 % (37.0-53.0)
[2021-06-13 14:41] LABS: Percent Saturation 10.9 % (20.0-50.0)
[2021-06-13 18:17] LABS: Hematocrit 23.6 % (37.0-53.0); Hemoglobin 7.6 g/dL (13.5-17.5)
[2021-06-13] MEDS ORDERED: IRBESARTAN300 M1 PO (20:42)
[2021-06-13] MEDS ORDERED: METF500 PO (20:45)
[2021-06-14 02:16] LABS: Bun/Creatinine Ratio 14.9 (12.0-20.0); Calcium, Blood 7.4 mg/dL (8.5-10.1); Creatinine, Blood 2.08 mg/dL (0.60-1.20)
[2021-06-14 02:18] LABS: BASOPHILS ABSOLUTE AUTO 0.06 K/mm3 (0.00-0.23); BASOPHILS PERCENT AUTO 1 % (0-2); EOSINOPHILS ABSOLUTE AUTO 0.17 K/mm3 (0.00-0.68); EOSINOPHILS PERCENT AUTO 2 % (0-6); Hematocrit 22.3 % (37.0-53.0); Hemoglobin 7.2 g/dL (13.5-17.5); IMMATURE GRAN ABSOLUTE AUTO 0.06 K/mm3 (0.00-0.10); IMMATURE GRAN PERCENT AUTO 1 % (0-1); LYMPHOCYTES ABSOLUTE AUTO 1.12 K/mm3 (0.84-5.20); LYMPHOCYTES PERCENT AUTO 15 % (21-46); MONOCYTES ABSOLUTE AUTO 0.45 K/mm3 (0.16-1.47); MONOCYTES PERCENT AUTO 6 % (4-13); Mean Corpuscular HGB 31.2 pg (26.0-34.0); Mean Corpuscular HGB Conc 32.3 g/dL (31.5-36.5); Mean Corpuscular Volume 97 fL (80-100); Mean Platelet Volume 11.3 fL (9.1-12.4); NEUTROPHILS ABSOLUTE AUTO 5.64 K/mm3 (1.96-9.15); NEUTROPHILS PERCENT AUTO 75 % (41-73); Platelet Count 168 K/mm3 (150-400); RDW Coefficient Variation 13.4 % (11.7-14.2); RDW Standard Deviation 46.7 fL (35.1-46.3); Red Blood Cell Count 2.31 M/mm3 (4.30-5.90)
--- NOTE | 2021-06-14 06:16 | NUR ---
PATIENT HAS HAD AN UNEVENTFUL NIGHT. RESTED WELL OVER NIGHT. Q2 HR TURN AND CHANGE. WAS INCONTINENT OF URINE. H&H IS STILL BEING MONITORED Q8HRS. VITALS PATIENT ON 2L O2/NC. NITRO PASTE TO R CHEST. VITALS REVIEWED CALL LIGHT IN REACH.
[2021-06-14 09:30] LABS: Hematocrit 25.7 % (37.0-53.0); Hemoglobin 8.2 g/dL (13.5-17.5)
[2021-06-14 12:55] LABS: Thyroid Stimulating Hormone 1.73 uIU/mL (0.360-4.800); Thyroxine (T4) 7.8 ug/dL (4.5-12.1)
[2021-06-14 17:20] LABS: Hematocrit 21.9 % (37.0-53.0)
--- NOTE | 2021-06-14 19:29 | NUR ---
SUMMARY- PT ALERT TO SELF AND . ANSWERS QUESTIONS WITH LONG PAUSE, 1-2 WORD PHRASES. EASILY IRRITABLE AND CURSES OCCASIONALLY. ASSISTED PT WITH MEALS, HE HAS A HARD TIME FEEDING HIMSELF MAKING A MESS AND GETS FRUSTRATED. WORRIED PT HASNT HAD BM SINCE ADMISSION, BUT NOC RN STATES HE HAD A BM ON THE NIGHT HE CAME IN AND HELPED CLEAN IT UP AND WILL BACK DOCUMENT. PT HAS TRIED BEDPAN X2 TODAY FEELING LIKE HE HAS TO HAVE A BM BUT NO RESULTS. ORDER PLACED FOR LAX AND FLEETS PRN. NOC RN TO F/U. PT MEDICATED FOR C/O CERVICAL NECK PAIN WITH TRAMADOL AT DINNER TIME. PT INCONT BLADDER AND TURNED AND CHANGED ROUTINE, SMALL AREA OF HEALING ULCERATION TOP OF GLUT CREASE. STATES AREA IS LOOKING BETTER.
[2021-06-15 02:08] LABS: BASOPHILS ABSOLUTE AUTO 0.05 K/mm3 (0.00-0.23); BASOPHILS PERCENT AUTO 1 % (0-2); EOSINOPHILS ABSOLUTE AUTO 0.16 K/mm3 (0.00-0.68); EOSINOPHILS PERCENT AUTO 2 % (0-6); Hematocrit 23.3 % (37.0-53.0); Hemoglobin 7.4 g/dL (13.5-17.5); IMMATURE GRAN ABSOLUTE AUTO 0.06 K/mm3 (0.00-0.10); IMMATURE GRAN PERCENT AUTO 1 % (0-1); LYMPHOCYTES ABSOLUTE AUTO 1.43 K/mm3 (0.84-5.20); LYMPHOCYTES PERCENT AUTO 19 % (21-46); MONOCYTES ABSOLUTE AUTO 0.49 K/mm3 (0.16-1.47); MONOCYTES PERCENT AUTO 6 % (4-13); Mean Corpuscular HGB 30.7 pg (26.0-34.0); Mean Corpuscular HGB Conc 31.8 g/dL (31.5-36.5); Mean Corpuscular Volume 97 fL (80-100); Mean Platelet Volume 11.5 fL (9.1-12.4); NEUTROPHILS ABSOLUTE AUTO 5.42 K/mm3 (1.96-9.15); NEUTROPHILS PERCENT AUTO 71 % (41-73); NRBC ABSOLUTE 0.02 K/mm3 (0.00-0.02); NRBC Auto 0.3 /100 WBC (0.0-0.2); Platelet Count 189 K/mm3 (150-400); RDW Coefficient Variation 13.5 % (11.7-14.2); Red Blood Cell Count 2.41 M/mm3 (4.30-5.90); White Blood Cell Count 7.61 K/mm3 (4.00-11.30)
[2021-06-15 02:09] LABS: Bun/Creatinine Ratio 18.3 (12.0-20.0); Calcium, Blood 7.6 mg/dL (8.5-10.1); Creatinine, Blood 2.18 mg/dL (0.60-1.20); Magnesium, Blood 1.9 mg/dL (1.6-2.4); Potassium, Blood 4.4 mmol/L (3.5-5.5)
--- NOTE | 2021-06-15 04:43 | NUR ---
PATIENT SEEMS MUCH MORE ALERT THIS SHIFT. ANSWERING QUESTIONS MORE APPROPRIATELY AND IC MORE CONVERSATIONAL. TOOK MEDS AND TOLERATED WELL. Q2 HR TURN AND CHECK. FLEETS ENEMA WAS ADMINISTERED WITH GOOD RESULTS. PATIENT HAS BEEN SR THIS SHIFT WITH NO EPISODES OF BRADICARDIA. VITALS REVIEWED. CALL LIGHT IN REACH AND BED ALARM SET.
--- NOTE | 2021-06-15 19:37 | NUR ---
SUMM- PT DEPENDANT IN CARE. TURNS SIDE TO SIDE, INCONT CARE. PT'S COMES IN TO AID PT WITH EACH MEAL. PT TOLERATING FOOD AND FLUIDS. PT'S PAIN CONTROLLED WITH ULTRAM. NAPS ON/OFF T/O DAY BUT EASILY AROUSES TO VERBAL STIM. FOLLOWING H/H, IRON IV FOR 3 DAYS. PLAN TO DC HOME WITH HH. POSSIBLY BLOOD IF HGB BELOW 7 TOMORROW.
--- NOTE | 2021-06-15 23:59 | NUR ---
PT RESTING QUIETLY AT THIS TIME. NO NEEDS. CALL LT IN REACH.
--- NOTE | 2021-06-16 02:53 | NUR ---
PT DENIES NEED FOR PAIN MEDS. STATES HE DOESN'T NEED ANYTHING. NO DISTRESS NOTED. CALL LT IN REACH.
--- NOTE | 2021-06-16 04:09 | NUR ---
SHIFT SUMMARY: ALERT TO SELF, AWAKENS EASILY. A LITTLE TUNUNAK. CURRENTLY ON 2L VIA NC. DENIES NEED FOR PAIN MEDICATION, STATES HE DOESN'T NEED ANYTHING, NO DISTRESS NOTED. TOOK MEDS WELL. PLAN IS TO DISCHARGE HOME WITH HOME HEALTH FOLLOWING. NO ACUTE CHANGES. WILL CONTINUE TO PROVIDE CARE UNTIL SHIFT REPORT.
[2021-06-16 05:12] LABS: BASOPHILS ABSOLUTE AUTO 0.05 K/mm3 (0.00-0.23); BASOPHILS PERCENT AUTO 1 % (0-2); EOSINOPHILS ABSOLUTE AUTO 0.22 K/mm3 (0.00-0.68); EOSINOPHILS PERCENT AUTO 3 % (0-6); Hemoglobin 7.5 g/dL (13.5-17.5); IMMATURE GRAN ABSOLUTE AUTO 0.04 K/mm3 (0.00-0.10); IMMATURE GRAN PERCENT AUTO 1 % (0-1); LYMPHOCYTES ABSOLUTE AUTO 1.31 K/mm3 (0.84-5.20); LYMPHOCYTES PERCENT AUTO 18 % (21-46); MONOCYTES ABSOLUTE AUTO 0.53 K/mm3 (0.16-1.47); MONOCYTES PERCENT AUTO 7 % (4-13); Mean Corpuscular HGB Conc 31.3 g/dL (31.5-36.5); Mean Corpuscular Volume 99 fL (80-100); Mean Platelet Volume 11.6 fL (9.1-12.4); NEUTROPHILS ABSOLUTE AUTO 5.26 K/mm3 (1.96-9.15); NEUTROPHILS PERCENT AUTO 71 % (41-73); NRBC ABSOLUTE 0.02 K/mm3 (0.00-0.02); NRBC Auto 0.3 /100 WBC (0.0-0.2); Platelet Count 192 K/mm3 (150-400); RDW Coefficient Variation 13.7 % (11.7-14.2); RDW Standard Deviation 49.8 fL (35.1-46.3); Red Blood Cell Count 2.42 M/mm3 (4.30-5.90); White Blood Cell Count 7.41 K/mm3 (4.00-11.30)
[2021-06-16 05:58] LABS: Bun/Creatinine Ratio 15.5 (12.0-20.0); Calcium, Blood 7.8 mg/dL (8.5-10.1); Creatinine, Blood 2.13 mg/dL (0.60-1.20)
[2021-06-16] MEDS ORDERED: FURO40 PO (11:16)
[2021-06-16] MEDS ORDERED: FAMO20 PO (11:16)
[2021-06-16] MEDS ORDERED: POTA10T PO (11:17)
[2021-06-16] MEDS ORDERED: BASAGLAR K100 UNIT/1 SC (11:17)
--- NOTE | 2021-06-16 16:42 | NUR ---
Patient was a [facility] patient who was transferred to [facility] on 2due to dyspnea. Patient discharged today- 06/16/2021 with resumption of home health orders. Gathered supporting documentation for resumption (face sheet, discharge order, med list, and H&P) and faxed to [facility] for review. No further interventions required. [facility] Referral Liaison
== END 2021-06-16 15:30 | disposition home health service (06) | DRG 291 ==
LOC: ER 09:44 → ERHOLD 09:45 → MEDS 20:20
PROVIDERS: Emergency Medicine; Internal Medicine; Nurse Practitioner Acute Care; ADMIT Internal Medicine
DX: I13.0 Hypertensive heart and chronic kidney disease with heart failure and stage 1 through stage 4 chronic kidney disease, or unspecified chronic kidney disease (principal); I50.33 Acute on chronic diastolic (congestive) heart failure; J96.01 Acute respiratory failure with hypoxia; N18.4 Chronic kidney disease, stage 4 (severe); J98.11 Atelectasis; Z20.822 Contact with and (suspected) exposure to COVID-19; Z66 Do not resuscitate; E88.09 Other disorders of plasma-protein metabolism, not elsewhere classified; D50.9 Iron deficiency anemia, unspecified; N40.0 Benign prostatic hyperplasia without lower urinary tract symptoms; I25.10 Atherosclerotic heart disease of native coronary artery without angina pectoris; Z68.30 Body mass index [BMI] 30.0-30.9, adult; E66.01 Morbid (severe) obesity due to excess calories; E11.22 Type 2 diabetes mellitus with diabetic chronic kidney disease; Z88.5 Allergy status to narcotic agent; Z88.8 Allergy status to other drugs, medicaments and biological substances; Z79.4 Long term (current) use of insulin; Z79.899 Other long term (current) drug therapy; Z79.82 Long term (current) use of aspirin; Z95.1 Presence of aortocoronary bypass graft; Z95.5 Presence of coronary angioplasty implant and graft; Z95.2 Presence of prosthetic heart valve; Z98.890 Other specified postprocedural states; Z90.49 Acquired absence of other specified parts of digestive tract
CPT/HCPCS: 0241U; 36415; 71045; 71046; 71260; 74177; 80048; 80053; 80069; 82330; 82607; 82746; 82947; 83540; 83550; 83735; 83880; 84145; 84436; 84443; 84484; 85014; 85018; 85025; 85379; 93005; 93010; 93306; 94760; 94761; 94762; 96365-59; 96372; 96375-59; 96376; 96376-59; 99285-25; A9270; G0378; J0696; J1644; J1940; J2916; Q9967

== ENCOUNTER → 2021-07-24 | Outpatient (CLI) | payer MEDICARE, OTHER ==
[~2021-07-24] MED LIST changes: +BASAGLAR K100 UNIT/1 SC; +FAMO20 PO; +FURO40 PO; +IRBESARTAN300 M1 PO; +POTA10T PO
[2021-07-24 17:55] LABS: Source, Urine Voided
[2021-07-24 19:06] LABS: Bilirubin, Urine Neg (Neg); Blood, Urine Neg (Neg); Glucose Qualitative, Urine 1+ (Neg); Ketones, Urine Neg (Neg); Leukocyte Esterase, Urine Neg (Neg); Nitrite, Urine Neg (Neg); Protein, Urine 3+ (Neg); Urobilinogen, Urine NORM (Normal); pH, Urine 6.5 (5.0-8.0)
[2021-07-24 19:17] LABS: Appearance, Urine Hazy (Clear); Color, Urine Pale Yellow (P-Yellow)
[2021-07-24 19:18] LABS: Amorphous Light (0-Heavy); Bacteria Rare /hpf; Red Blood Cells, Urine 0-2 /hpf (0-2); Squamous Epithelial Cells Rare /hpf (Few); White Blood Cells, Urine 0-2 /hpf (0-5)
== END | disposition home or self-care (01) ==
LOC: LAB 17:53 → LAB SHORT 17:53
PROVIDERS: Family Medicine
DX: R33.9 Retention of urine, unspecified (principal)
CPT/HCPCS: 81001